=== PATIENT | male | born 1955 | race Caucasian/White ===

== ENCOUNTER 2018-11-26 10:33 | Observation (INO) | payer OTHER ==
[2018-11-26 12:18] LABS: BASO % 1.3 % (0-2.0); EOS % 2.2 % (0-4.5); HEMATOCRIT 38.1 % (35.4-49); HEMOGLOBIN 13.2 GM/dL (11.7-16.9); LYMPH % 22.9 % (8-40); MCH 31.3 pg (25.7-33.7); MCHC 34.7 g/dl (32.0-35.9); MEAN CELL VOLUME 90.1 fl (80-96); MEAN PLT VOLUME 9.9 fl (7.5-11.1); MONO % 11.6 % (3.8-10.2); PLATELET COUNT 235 K/MM3 (134-434); RBC 4.23 M/mm3 (4.00-5.60); RDW 13.6 % (11.9-15.9); WHITE BLOOD COUNT 8.2 K/mm3 (4.0-10.0)
--- NOTE | 2018-11-26 12:18 | PDOC ---
History of Present Illness - General Chief Complaint: Pain Stated Complaint: SENT BY PCP Time Seen by Provider: 11/26/18 11:29 History Source: Patient Exam Limitations: No Limitations - History of Present Illness Initial Comments: 11/26/18 12:12 Pt is a 62yo M with PMH of CAD s/p stents x2, Afib (on Eliquis), COPD, DM presenting to ED with worsening R calf swelling and pain. Pt states he noticed the swelling 2 weeks ago but has been getting progressively worse over the last week. He states that 1-2 days ago he noticed bruising on the back of the calf. He had doppler studies done last week but no clots were found. He endorses SOB and lightheadedness which he attributes to COPD and says he does not feel more sob than usual. Denies chest pain, cough, fevers, chills, syncope, palpitations , abdominal pain, n/v/d urinary symptoms, trauma. He was given a water pill but it has not helped with the swelling *note from PMD office states pt is on ASA and Plavix as well PMD: Ross PMH: see hpi PSH: see hpi Meds: see med rec Allergies: amoxicillin (swelling) Social: smokes cigars daily Past History - Past Medical History Allergies/Adverse Reactions: Allergies Allergy/AdvReac Type Severity Reaction Status Date / Time amoxicillin Allergy Verified 11/26/18 10:48 Home Medications: Ambulatory Orders Amlodipine Besylate [Norvasc -] 10 mg PO DAILY 11/26/18 Apixaban [Eliquis] 5 mg PO BID 11/26/18 Atorvastatin Ca [Lipitor] 10 mg PO HS 11/26/18 Budesonide/Formeterol Fumarate [SYMBICORT 80/4.5mcg -] 1 inh PO BID 11/26/18 Clopidogrel Bisulfate [Plavix] 75 mg PO DAILY 11/26/18 Fesoterodine Fumarate [Toviaz] 8 mg PO DAILY 11/26/18 Furosemide [Lasix] 60 mg PO DAILY 11/26/18 Glipizide/Metformin HCl [Glipizide-Metformin 5-500 mg] 1 each PO BID 11/26/18 Labetalol HCl 300 mg PO DAILY 11/26/18 Lisinopril [Zestril] 40 mg PO DAILY 11/26/18 Oxycodone HCl/Acetaminophen [Percocet 5-325 mg Tablet] 1 tab PO Q4H PRN Tamsulosin HCl [Flomax] 0.4 mg PO DAILY 11/26/18 Cardiac Disorders: Yes (STENTS) COPD: Yes Diabetes: Yes HTN: Yes Kidney Stones: Yes - Surgical History Cardiac Surgery: (STENTS) - Suicide/Smoking/Psychosocial Hx Smoking History: Current some day smoker Cigars Per Day: 1 Information on smoking cessation initiated: No *Physical Exam - Vital Signs Last Vital Signs Temp Pulse Resp BP Pulse Ox 98.1 F 66 20 91/53 L 94 L 11/26/18 10:44 11/26/18 10:44 11/26/18 10:44 11/26/18 10:44 11/26/18 10:44 - Physical Exam General Appearance: Yes: Appropriately Dressed, Obese. No: Apparent Distress HEENT: positive: EOMI, NEL, Normal ENT Inspection Neck: positive: Trachea midline, Supple. negative: Lymphadenopathy (R), Lymphadenopathy (L) Respiratory/Chest: positive: Lungs Clear, Normal Breath Sounds Cardiovascular: positive: Regular Rhythm, Regular Rate, S1, S2. negative: Edema , JVD, Murmur Vascular Pulses: Carotid (R): 2+, Carotid (L): 2+, Dorsalis-Pedis (R): 2+, Doralis-Pedis (L): 2+ Gastrointestinal/Abdominal: positive: Normal Bowel Sounds, Soft, Protuberent. negative: Tender Extremity: positive: Pedal Edema, Swelling (R leg), Calf Tenderness (R calf) ED Treatment Course - LABORATORY CBC & Chemistry Diagram: 11/27/18 10:33 11/27/18 07:00 - RADIOLOGY Radiology Studies Ordered: Category Date Time Status DUPLEX VASCUL US-1 LEG [US] Stat Ultrasound 11/26/18 12:10 Ordered Medical Decision Making - Medical Decision Making Pt is a 62yo M with PMH of CAD s/p stents x2, Afib (on Eliquis), COPD, DM presenting to ED with worsening R calf swelling and pain. Pt states he noticed the swelling 2 weeks ago but has been getting progressively worse over the last week. He states that 1-2 days ago he noticed bruising on the back of the calf. He had doppler studies done last week but no clots were found. He endorses SOB and lightheadedness which he attributes to COPD and says he does not feel more sob than usual. Denies chest pain, cough, fevers, chills, syncope, palpitations , abdominal pain, n/v/d urinary symptoms, trauma. He was given a water pill but it has not helped with the swelling *note from PMD office states pt is on ASA and Plavix as well Vitals: BP 90s/50s, 94-95%RA (COPD), HR 60s PE: RLE edema and swelling, bruising on back of calf, tender ddx includes but not limited to DVT, cellulitis, hematoma, ruptured aden's cyst , phlebitis -cbc, cmp, coags, trop -ekg, u/s, cxr -fluids 11/26/18 12:37 recheck BP 104/70s 11/26/18 13:57 Doppler study shows Bakers Cyst and no DVT. Will order CT CT [id number] area of hemorrhage within medial gastrocnemius muscle from level of proximal R tibial metaphysis to level of middle third of tibial diaphhysis. superior border abuts small subtle 2x1 cm popliteal cyst. concentric subcutaneious edema along length of lower extremity. small R suprapatellra joint effusion. 11/26/18 18:[address] Gallagher who said that pt can stop taking Plavix, does not need to continue since it has been over 1 year he had the stent placed Pt will be admitted obs to make sure bleeding does not get worse, watching for compartment syndrome 11/26/18 19:11 *DC/Admit/Observation/Transfer Diagnosis at time of Disposition: Hemorrhage, Right leg swelling - Discharge Dispostion Decision to Admit order: Yes - Referrals - Patient Instructions - Post Discharge Activity
[2018-11-26] MEDS ORDERED: SODIUM CHLORIDE 1,000 ML IV STA (12:21)
[2018-11-26 12:39] LABS: INR 1.42 (0.83-1.09); PROTHROMBIN TIME (PATIENT) 16.8 SEC (9.7-13.0)
[2018-11-26 12:41] LABS: ACTIVATED PTT 43.1 SECONDS (25.2-36.5)
[2018-11-26 12:50] LABS: ALBUMIN 3.6 g/dl (3.4-5.0); ALK PHOS 66 U/L (45-117); ANION GAP 6 MMOL/L (8-16); BILIRUBIN,TOTAL 0.6 mg/dL (0.2-1); BLOOD UREA NITROGEN 23 mg/dL (7-18); CALCIUM 8.4 mg/dL (8.5-10.1); CHLORIDE 105 mmol/L (98-107); CO2 26 mmol/L (21-32); CREATININE 1.5 mg/dL (0.55-1.3); GLUCOSE,RANDOM 168 mg/dL (74-106); POTASSIUM 4.8 mmol/L (3.5-5.1); SGOT/AST 36 U/L (15-37); SGPT/ALT 38 U/L (13-61); SODIUM 137 mmol/L (136-145); TOT PROT 7.3 g/dl (6.4-8.2)
--- NOTE | 2018-11-26 13:22 | PDOC ---
Attending Attestation - Resident Resident Name: Yola Solis - ED Attending Attestation I have performed the following: I have examined & evaluated the patient, The case was reviewed & discussed with the resident, I agree w/resident's findings & plan - HPI HPI: 11/26/18 13:17 62-year-old male with history of CAD status post stents on Plavix, A. fib on eliquis p/w worsening R lower leg/calf pain for 3-4 works, worse over the past week. Seen by Dr. Caal and doppler performed 3-4 days ago negative for DVT. Pt presents today 2/2 increased bruising/swelling/pain, referred to ED by Dr. Caal. reports compliance with his a/c, denies strain/injury. - Physicial Exam PE: 11/26/18 13:20 Vital signs as noted, blood pressure 130/70, O2 sat 94% with history of COPD Well-appearing, obese, lying comfortably in stretcher in no acute distress Speaking full sentences, no JVD Heart is regular to auscultation, no murmur Right lower extremity: There is 3+ pitting edema in the right lower leg with tender ecchymosis along the calf, discomfort to palpation in the popliteal region. 2+ DP and TP pulses, well perfused distally and neurovascularly intact. 5 out of 5 flexion and extension of knee/ankle/toes on the right Left lower extremity has 2+ pitting edema. - Medical Decision Making 11/26/18 13:22 62-year-old male on anticoagulation for history of CAD and A. fib presents with several weeks of worsening right calf swelling and pain, negative DVT study 3 days ago. Presentation seems most consistent with gastrocnemius hematoma v ruptured aden's cyst, likely exacerbated by his anticoagulation. Very low risk for DVT particularly given his anticoagulation and negative study. Neurovascularly intact without evidence of compartment syndrome. Check labs Repeat Doppler Reassess Heart Score/ECG Review #1 ECG reviewed & interpreted by me at: 11:46 General ECG Interpretation: Sinus Rhythm, Normal Rate (57), Normal Intervals ( qtc 428), No acute ischemic changes (TWI AVF) Compared to previous ECG there are: Previous ECG unavail
[2018-11-26 19:00] LABS: URINE APPEARANCE CLEAR; URINE BILIRUBIN NEGATIVE (NEGATIVE); URINE COLOR YELLOW; URINE GLUCOSE (UA) NEGATIVE (NEGATIVE); URINE KETONE NEGATIVE (NEGATIVE); URINE LEUK ESTERASE NEGATIVE (NEGATIVE); URINE NITRITE NEGATIVE (NEGATIVE); URINE PROTEIN NEGATIVE (NEGATIVE); URINE UROBILINOGEN 0.2 mg/dL (0.2-1.0)
[2018-11-26] MEDS ORDERED: SENNOSIDES 8.6MG TABLET (FP) PO PRN (20:01)
[2018-11-26] MEDS ORDERED: DOCUSATE SODIUM 100 MG CAPSULE (FP) PO PRN (20:01)
[2018-11-26] MEDS ORDERED: NITROGLYCERIN SUBLINGUAL 1/150 0.4 MG TAB SL PRN (20:08)
[2018-11-26] MEDS ORDERED: metFORMIN HCL 500 MG TABLET (FP) ONE (21:48)
[2018-11-26] MEDS ORDERED: glipiZIDE 5 MG TABLET (FP) ONE (21:49)
[2018-11-26] MEDS ORDERED: LABETALOL HCL 100 MG TABLET (FP) ONE (21:49)
[2018-11-26] MEDS ORDERED: ATORVASTATIN CA 10 MG TABLET (FP) ONE (21:49)
[2018-11-26] MEDS: glipiZIDE 5 MG TABLET (FP) PO SCH (21:55)
[2018-11-26] MEDS: metFORMIN HCL 500 MG TABLET (FP) PO SCH (21:55)
[2018-11-26] MEDS: ATORVASTATIN CA 10 MG TABLET (FP) PO SCH (21:55)
[2018-11-26] MEDS: LABETALOL HCL 100 MG TABLET (FP) PO SCH (21:55)
[2018-11-26] MEDS: BUDESONIDE/FORMETEROL FUMARATE 80/4.5 mcg INHALER IH SCH (22:00)
--- NOTE | 2018-11-26 22:11 | HP ---
Admitting History and Physical - Admission Chief Complaint: right calf pain and swelling History of Present Illness: 62 year old Male with h/o Atrial fibrilllation (on eliquis), CAD s/p PCI mRCA and LAD (2018) at [facility], COPD, DMII, and Kidney stones s/p lithotripsy; presents to ED for evaluation of progressively worsening right calf pain over the course of 5 weeks. Mr. Arenas reports being compliant with all his meds, including plavix for CAD and Eliquis for Afib , (he does not take aspirin), but has not seen a senior medical writer in more than a year since his "old senior medical writer left town." Symptoms started out as muscle tension in the right calf five weeks ago which gradually progressed to right calf swelling and pain, which has worsened over the past week. Pt was evaluated by PCP 5days prior to presenting to ED, and treated with percocet and motrin along with rest and elevation. He has remained out of work for the last week due to severity of symptoms and followed up with PCP on 11/26, where he reported no improvement in clinical status, additionally, he was now unable to weight bear and had difficulty climbing the stairs in his house. Patient was referred to ED for evaluation. Mr. Arenas denies recent travel, falls or inciting traumatic events. In ED, vitals BP 91/53, RR 20, HR 65, T 98.1. H/H 13.2/38.1, PTT 43.1, INR 1.42, PT 16.8, creatinine 1.5. Pt given NS 1L RLE doppler negative for DVT. RLE CT scan + acute hemorrhage seen within the medial gastrocnemius muscle. Pt admitted for observation overnight, Cards and vascular to evaluate pt. History Source: Patient Limitations to Obtaining History: No Limitations - Past Medical History Cardiovascular: Yes: AFIB, CAD, CHF, HTN, Hyperlipdemia Pulmonary: Yes: COPD Renal/: Yes: BPH - Past Surgical History Past Surgical History: Yes: None - Smoking History Smoking history: Current some day smoker Have you smoked in the past 12 months: Yes If you are a former smoker, when did you quit?: currently smokes 1 cigar daily - Alcohol/Substance Use Hx Alcohol Use: No History of Substance Use: reports: None - Social History Usual Living Arrangement: Yes: With Significant Other (lives with two friends) ADL: Independent 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 History of Recent Travel: No Other Social History: HCP: Logan Kay [phone] Home Medications - Allergies Allergies/Adverse Reactions: Allergies Allergy/AdvReac Type Severity Reaction Status Date / Time amoxicillin Allergy Verified 11/26/18 10:48 - Home Medications Home Medications: Ambulatory Orders Amlodipine Besylate [Norvasc -] 10 mg PO DAILY 11/26/18 Apixaban [Eliquis] 5 mg PO BID 11/26/18 Atorvastatin Ca [Lipitor] 10 mg PO HS 11/26/18 Budesonide/Formeterol Fumarate [SYMBICORT 80/4.5mcg -] 1 inh PO BID 11/26/18 Clopidogrel Bisulfate [Plavix] 75 mg PO DAILY 11/26/18 Fesoterodine Fumarate [Toviaz] 8 mg PO DAILY 11/26/18 Furosemide [Lasix] 60 mg PO DAILY 11/26/18 Glipizide/Metformin HCl [Glipizide-Metformin 5-500 mg] 1 each PO BID 11/26/18 Labetalol HCl 300 mg PO DAILY 11/26/18 Lisinopril [Zestril] 40 mg PO DAILY 11/26/18 Oxycodone HCl/Acetaminophen [Percocet 5-325 mg Tablet] 1 tab PO Q4H PRN Tamsulosin HCl [Flomax] 0.4 mg PO DAILY 11/26/18 Family Disease History - Family Disease History Family Disease History: Other: Father ( (80) emphysema), Mother ( (56) HTN, after complication from gallbladder surgery), Brother ( alive (79) OR CAD), Sister ( (80) unknown cancer) Other Family History: Brother (58) OR. Brother alive (63) well. Sister alive (65) breast cancer. Sister alive (66) well. Sister alive (58) CVA Review of Systems - Review of Systems Constitutional: reports: No Symptoms Eyes: reports: No Symptoms HENT: reports: No Symptoms Neck: reports: No Symptoms Cardiovascular: reports: Shortness of Breath (due to COPD) Respiratory: reports: Cough (chronic cough r/t SOB) Gastrointestinal: reports: No Symptoms Genitourinary: reports: No Symptoms Breasts: reports: No Symptoms Reported Musculoskeletal: reports: Extremity Pain (right calf pain) Integumentary: reports: Erythema (right calf redness) Neurological: reports: Tremors, Unsteady Gait, Weakness (RLE,) Endocrine: reports: No Symptoms Hematology/Lymphatic: reports: Easily Bruised Psychiatric: reports: No Symptoms Physical Examination Vital Signs: Vital Signs Temperature 98.6 F 11/26/18 22:00 Pulse Rate 76 11/26/18 22:00 Respiratory Rate 16 11/26/18 22:00 Blood Pressure 144/85 11/26/18 22:00 O2 Sat by Pulse Oximetry (%) 95 11/26/18 22:00 Constitutional: Yes: Well Nourished, No Distress, Calm, Other (dishelved) Eyes: Yes: Conjunctiva Clear, PERRL HENT: Yes: Atraumatic, Normocephalic Neck: Yes: Supple, Trachea Midline Cardiovascular: Yes: Regular Rate and Rhythm, S1, S2 Respiratory: Yes: Regular, CTA Bilaterally Gastrointestinal: Yes: Normal Bowel Sounds ...Rectal Exam: Yes: Deferred Musculoskeletal: Yes: WNL Extremities: Yes: WNL Edema: Yes Edema: RLE: 1+ (right calf) Peripheral Pulses WNL: Yes Peripheral Pulses: Left Radial: 2+, Right Radial: 2+, Left Doralis Pedis: 2+, Right Dorsalis Pedis: 2+ Integumentary: Yes: Erythema (right calf) Neurological: Yes: Alert, Oriented ...Motor Strength: WNL (slight decrease RLE) Psychiatric: Yes: Alert, Oriented Labs: CBC, BMP 11/26/18 12:09 11/26/18 11:29 Imaging - Results X-ray: Report Reviewed (CXR 11/26/2018 Impression: No acute chest pathology Reported By: Lawrence Duran MD 11/26/18 194) Cat Scan: Report Reviewed (CT RLE 11/26/2018 Impression: Acute hemorrhage is seen within the medial gastrocnemius muscle of the right leg as noted above. A subtle 2 x 1 cm medial popliteal cyst is seen. Concentric subcutaneous edema is visualized along the length of the lower extremity. Small suprapatellar joint effusion. Reported By: Mckinley Sparrow MD 11/26/18 223) Ultrasound: Report Reviewed (RLE venous doppler 11/26/2018 Impression: There is no evidence of deep venous thromboses in the right lower extremity. Torres's cyst in the popliteal fossa measuring 2.3 x 1.1 cm. Reported By: Maranda Ramirez MD) Problem List - Problems (1) Hemorrhage of muscle Assessment/Plan: hold plavix and eliquis cardiology consult to assist with management serial measurement of calf girth to assess for expanding hematoma trend H/H (currently normal) assess right peripheral circulation q4hrs PT eval in AM since pt has difficulty weight bearing Code(s): M62.89 - OTHER SPECIFIED DISORDERS OF MUSCLE (2) Atrial fibrillation Assessment/Plan: continuous tele hold AC, until pt evaluated by cards rate control with BB Code(s): I48.91 - UNSPECIFIED ATRIAL FIBRILLATION (3) Coronary arteriosclerosis Assessment/Plan: hold anti-plt medication continue lipitor 10mg qhs cardiac/diabetic diet Code(s): I25.10 - ATHSCL HEART DISEASE OF [place] CORONARY ARTERY W/O ANG PCTRS (4) Diabetes type 2, controlled Assessment/Plan: metformin 500mg BID with meals glipizide 5mg BID with meals diabetic diet consider insulin if BG levels are not well controlled with oral agents Code(s): E11.9 - TYPE 2 DIABETES MELLITUS WITHOUT COMPLICATIONS (5) HTN (hypertension) Assessment/Plan: Lisinopril 40mg daily lasix 40mg daily norvasc 10mg daily Code(s): I10 - ESSENTIAL (PRIMARY) HYPERTENSION (6) Asthma Assessment/Plan: symbicort BID nebs PRN dyspnea Code(s): J45.909 - UNSPECIFIED ASTHMA, UNCOMPLICATED (7) Benign prostatic hyperplasia (BPH) with urinary urge incontinence Assessment/Plan: continue flomax and Toviaz Code(s): N40.1 - BENIGN PROSTATIC HYPERPLASIA WITH LOWER URINARY TRACT SYMP; N39.41 - URGE INCONTINENCE Assessment/Plan DISPO: Full code observe overnight, if deemed stable by vascular, pt can be discharged with outpt follow up no heparin products 2/2 bleed, apply SCD to LLE only OOB to chair start protonix daily for GI PPX Visit type - Emergency Visit Emergency Visit: Yes ED Registration Date: 11/26/18 Care time: The patient presented to the Emergency Department on the above date and was hospitalized for further evaluation of their emergent condition. - New Patient This patient is new to me today: Yes Date on this admission: 11/26/18 - Critical Care Critical Care patient: No
[2018-11-26] MEDS ORDERED: ALBUTEROL SO4 0.083% IH SOL 2.5 MG/3 ML VIAL.NEB. NEB PRN (23:19)
[2018-11-26 23:54] VITALS: BMI 49.7
[2018-11-27] MEDS ORDERED: PNEUMOC 13-VAL CONJ-DIP CRM/PF 0.5 ML DISP.SYRIN IM ONE
[2018-11-27] MEDS: glipiZIDE 5 MG TABLET (FP) PO SCH ×2 (06:25→17:50)
[2018-11-27] MEDS: metFORMIN HCL 500 MG TABLET (FP) PO SCH ×2 (06:25→17:50)
[2018-11-27 07:47] LABS: HEMATOCRIT 35.1 % (35.4-49); HEMOGLOBIN 12.1 GM/dL (11.7-16.9); MCH 30.8 pg (25.7-33.7); MCHC 34.6 g/dl (32.0-35.9); MEAN CELL VOLUME 89.1 fl (80-96); MEAN PLT VOLUME 9.3 fl (7.5-11.1); PLATELET COUNT 199 K/MM3 (134-434); RBC 3.94 M/mm3 (4.00-5.60); RDW 13.5 % (11.9-15.9); WHITE BLOOD COUNT 7.6 K/mm3 (4.0-10.0)
--- NOTE | 2018-11-27 07:58 | CONSULT ---
- Consultation REQUESTING PROVIDER: CONSULT REQUEST: We have been asked to surgically evaluate this patient for Right calf hematoma PCP:Breann Hawkins HISTORY OF PRESENT ILLNESS: 62yo M presented to the ED with complaints of worsening Right calf hematoma x 1 week. Pt states that he noticed some swelling in his leg for several weeks, but that it got really bad over the past week with pain. Pt on Eliquiis for afib, states last took on Monday. Pt denies any trauma to the leg. Pt denies vascular problems or surgery on the leg. Pt denies weakness or numbness in the leg. Pt smokes cigars daily 1-2/day PMHx: Diabetes, CAD, BPH, COPD Home Medications Medication Instructions Recorded Amlodipine Besylate [Norvasc -] 10 mg PO DAILY 11/26/18 Apixaban [Eliquis] 5 mg PO BID 11/26/18 Atorvastatin Ca [Lipitor] 10 mg PO HS 11/26/18 Budesonide/Formeterol Fumarate 1 inh PO BID 11/26/18 [SYMBICORT 80/4.5mcg -] Clopidogrel Bisulfate [Plavix] 75 mg PO DAILY 11/26/18 Fesoterodine Fumarate [Toviaz] 8 mg PO DAILY 11/26/18 Furosemide [Lasix] 60 mg PO DAILY 11/26/18 Glipizide/Metformin HCl 1 each PO BID 11/26/18 [Glipizide-Metformin 5-500 mg] Labetalol HCl 300 mg PO DAILY 11/26/18 Lisinopril [Zestril] 40 mg PO DAILY 11/26/18 Oxycodone HCl/Acetaminophen 1 tab PO Q4H PRN 11/26/18 [Percocet 5-325 mg Tablet] Tamsulosin HCl [Flomax] 0.4 mg PO DAILY 11/26/18 Allergies Allergy/AdvReac Type Severity Reaction Status Date / Time amoxicillin Allergy Verified 11/26/18 10:48 REVIEW OF SYSTEMS: CONSTITUTIONAL: Absent: fever, chills, diaphoresis, generalized weakness, malaise CARDIOVASCULAR: Absent: chest pain, syncope, palpitations,lightheadedness, peripheral edema RESPIRATORY: Absent: cough, shortness of breath, dyspnea with exertion, wheezing GASTROINTESTINAL: Absent: abdominal pain, abdominal distension, nausea, vomiting, diarrhea, constipation, melena, hematochezia SKIN: Absent: rash, itching, pallor HEMATOLOGIC/IMMUNOLOGIC: Absent: easy bleeding, easy bruising NEUROLOGIC: Absent: headache, focal weakness, paresthesias, dizziness, unsteady gait, seizure, mental status changes, PHYSICAL EXAM: GENERAL: Awake, alert, and fully oriented, in no acute distress. HEAD: Normal with no signs of trauma. EYES: PERRL, sclera anicteric, conjunctiva clear. NECK: Normal ROM LUNGS: Clear to auscultation bilat anteriorly. No wheezes, and no crackles. No accessory muscle use. HEART: Regular rate and rhythm. No murmurs MUSCULOSKELETAL: Normal ROM at all joints. No bony deformities or tenderness. No CVA tenderness. LOWER EXTREMITIES: 2+ pulses, warm, well-perfused. RLE shows calf swelling with mild tenderness to palpation, no numbness or weakness, foot is warm with +1 edema. Full ROM NEUROLOGICAL: Normal speech, gait not observed. PSYCH: Cooperative. Good eye contact. Appropriate mood and affect. SKIN: Warm, dry, normal turgor, no rashes or lesions noted. Vital Signs Temperature 98.7 F 11/27/18 06:00 Pulse Rate 82 11/27/18 06:00 Respiratory Rate 20 11/27/18 06:00 Blood Pressure 142/70 11/27/18 06:00 O2 Sat by Pulse Oximetry (%) 95 11/27/18 00:01 Lab Results WBC 8.2 K/mm3 (4.0-10.0) 11/26/18 12:09 RBC 4.23 M/mm3 (4.00-5.60) 11/26/18 12:09 Hgb 13.2 GM/dL (11.7-16.9) 11/26/18 12:09 Hct 38.1 % (35.4-49) 11/26/18 12:09 MCV 90.1 fl (80-96) 11/26/18 12:09 MCHC 34.7 g/dl (32.0-35.9) 11/26/18 12:09 RDW 13.6 % (11.9-15.9) 11/26/18 12:09 Plt Count 235 K/MM3 (134-434) 11/26/18 12:09 Sodium 137 mmol/L (136-145) 11/26/18 11:29 Potassium 4.8 mmol/L (3.5-5.1) 11/26/18 11:29 Chloride 105 mmol/L (98-107) 11/26/18 11:29 Carbon Dioxide 26 mmol/L (21-32) 11/26/18 11:29 Anion Gap 6 MMOL/L (8-16) L 11/26/18 11:29 BUN 23 mg/dL (7-18) H 11/26/18 11:29 Creatinine 1.5 mg/dL (0.55-1.3) H 11/26/18 11:29 Random Glucose 168 mg/dL (74-106) H 11/26/18 11:29 Calcium 8.4 mg/dL (8.5-10.1) L 11/26/18 11:29 INR 1.42 (0.83-1.09) H 11/26/18 12:09 Problem List - Problems (1) Hemorrhage of muscle Assessment/Plan: Plan -at this point no sign of compartment syndrome, recommend serial vascular checks Q2hrs, educated pt on what to look out for -elevate leg, warm compresses -will follow up on when to restart anticoagulation (appreciate cardiology recs) -will follow. Code(s): M62.89 - OTHER SPECIFIED DISORDERS OF MUSCLE
[2018-11-27 08:00] LABS: INR 1.28 (0.83-1.09); PROTHROMBIN TIME (PATIENT) 15.2 SEC (9.7-13.0)
[2018-11-27 08:03] LABS: ACTIVATED PTT 40.5 SECONDS (25.2-36.5)
[2018-11-27 08:17] LABS: ALBUMIN 3.2 g/dl (3.4-5.0); ALK PHOS 60 U/L (45-117); ANION GAP 8 MMOL/L (8-16); BILIRUBIN,TOTAL 0.6 mg/dL (0.2-1); BLOOD UREA NITROGEN 19 mg/dL (7-18); CALCIUM 7.6 mg/dL (8.5-10.1); CHLORIDE 106 mmol/L (98-107); CO2 27 mmol/L (21-32); CREATININE 1.1 mg/dL (0.55-1.3); GLUCOSE,RANDOM 113 mg/dL (74-106); SGOT/AST 25 U/L (15-37); SGPT/ALT 31 U/L (13-61); SODIUM 141 mmol/L (136-145); TOT PROT 6.5 g/dl (6.4-8.2)
--- NOTE | 2018-11-27 09:04 | PN ---
Progress Note (short form) - Note Progress Note: came in for progressively worsening right calf pain and swelling started ~6 weeks ago, quite severe for past week, where he is unable to walk no trauma, no falls, no recent change in medications CBC, BMP 11/27/18 07:00 11/27/18 07:00 Vital Signs Period Temp Pulse Resp BP Sys/Reed Pulse Ox Last 24 Hr 98.1 F-99.3 F 63-82 16-20 91-155/53-85 92-95 S1S2 RRR lungs cta abd soft NT +BS right thigh > left right calf > left, tense with dependent calf hematoma positive strong dorsalis pedis pulse aaox3 imp acute right calf hemorrhage -on plavix and eliquis, also recently on 800 mg motrin for calf pain CAD-s/p PCI 2017 afib -currently in sinus rhythm HTN NIDDM COPD renal stones plan vascular/card. consult requested stop plavix and eliquis for now monitor cbc PT eval tomorrow pain control keep leg elevated i think he can permanently stop plavix since pci is a year old resume eliquis when ok with vascular 24 h holter for afib eval
[2018-11-27] MEDS: FUROSEMIDE 40 MG TABLET (FP) PO SCH (09:14)
[2018-11-27] MEDS: TAMSULOSIN HCL 0.4 MG CAP PO SCH (09:15)
[2018-11-27] MEDS: amLODIPine BESYLATE 10 MG TABLET (FP) PO SCH (09:15)
[2018-11-27] MEDS: LABETALOL HCL 100 MG TABLET (FP) PO SCH (09:15)
[2018-11-27] MEDS: LISINOPRIL 20 MG TABLET (FP) PO SCH (09:15)
[2018-11-27] MEDS: PANTOPRAZOLE 20 MG TABLET (FP) PO SCH (09:15)
[2018-11-27] MEDS ORDERED: ACETAMINOPHEN 325 MG TABLET (FP) PO PRN (09:20)
--- NOTE | 2018-11-27 09:25 | EKG ---
Test Reason : Blood Pressure : / mmHG Vent. Rate : 057 BPM Atrial Rate : 057 BPM P-R Int : 170 ms QRS Dur : 096 ms QT Int : 440 ms P-R-T Axes : 012 -40 -30 degrees QTc Int : 428 ms SINUS BRADYCARDIA LEFT AXIS DEVIATION ABNORMAL ECG NO PREVIOUS ECGS AVAILABLE Confirmed by RD HAWLEY MD ([id number]) on 11/27/2018 9:24:39 AM Referred By: Confirmed By:RD HAWLEY MD
[2018-11-27] MEDS ORDERED: PT OWN MED DRAWER 7, Y5N ONE (09:34)
[2018-11-27] MEDS: BUDESONIDE/FORMETEROL FUMARATE 80/4.5 mcg INHALER IH SCH ×2 (09:39→22:24)
[2018-11-27] MEDS: oxyCODONE HCL 5 MG TABLET PO PRN (09:40)
[2018-11-27] MEDS ORDERED: PNEUMOCOCCAL 23 VACCINE 0.5 ML VIAL IM ONE (10:00)
[2018-11-27] MEDS ORDERED: FLU VACCINE QUAD 60 MCG/0.5 ML (MDV 18-19) IM ONE (10:00)
[2018-11-27 11:11] LABS: BASO % 0.8 % (0-2.0); EOS % 2.3 % (0-4.5); HEMATOCRIT 35.6 % (35.4-49); HEMOGLOBIN 12.4 GM/dL (11.7-16.9); LYMPH % 23.9 % (8-40); MCH 31.2 pg (25.7-33.7); MCHC 34.8 g/dl (32.0-35.9); MEAN CELL VOLUME 89.8 fl (80-96); MEAN PLT VOLUME 9.8 fl (7.5-11.1); MONO % 12.2 % (3.8-10.2); NEUT % 60.8 % (42.8-82.8); PLATELET COUNT 208 K/MM3 (134-434); RBC 3.96 M/mm3 (4.00-5.60); RDW 13.2 % (11.9-15.9); WHITE BLOOD COUNT 7.4 K/mm3 (4.0-10.0)
[2018-11-27] MEDS: ATORVASTATIN CA 10 MG TABLET (FP) PO SCH (22:23)
[2018-11-28] MEDS: glipiZIDE 5 MG TABLET (FP) PO SCH ×2 (06:27→16:52)
[2018-11-28] MEDS: metFORMIN HCL 500 MG TABLET (FP) PO SCH ×2 (06:27→16:54)
--- NOTE | 2018-11-28 08:15 | PN ---
Progress Note (short form) - Note Progress Note: 62yo M h/o Rt calf hematoma, pt states that the leg is feeling a little better, but continues to have pain with walking. Pt denies fever, chills, n/v. Last Vital Signs Temp Pulse Resp BP Pulse Ox 98.4 F 56 L 20 155/72 95 11/28/18 06:00 11/28/18 06:00 11/28/18 06:00 11/28/18 06:00 11/27/18 21:00 CBC, BMP 11/27/18 10:33 11/27/18 07:00 PE: Gen: A&O x3 Resp: breathing comfortably Ext: RLE whose +2 edema, pedal pulse +2, echymosis on posterior calf, full ROM, no weakness or numbness Problem List - Problems (1) Hemorrhage of muscle Assessment/Plan: Plan - Rt calf looks stable, can restart anticoagulation from Vascular standpoint -continue leg elevation, and hot packs - no surgical intervention needed at this time - can follow up with Dr. Fraser as outpatient Case discussed with Dr. Fraser who agrees with plan Code(s): M62.89 - OTHER SPECIFIED DISORDERS OF MUSCLE
[2018-11-28 08:28] LABS: BASO % 0.9 % (0-2.0); EOS % 2.8 % (0-4.5); HEMATOCRIT 36.1 % (35.4-49); HEMOGLOBIN 12.8 GM/dL (11.7-16.9); LYMPH % 26.8 % (8-40); MCH 31.7 pg (25.7-33.7); MCHC 35.4 g/dl (32.0-35.9); MEAN CELL VOLUME 89.7 fl (80-96); MEAN PLT VOLUME 9.5 fl (7.5-11.1); MONO % 12.7 % (3.8-10.2); NEUT % 56.8 % (42.8-82.8); PLATELET COUNT 195 K/MM3 (134-434); RBC 4.03 M/mm3 (4.00-5.60); RDW 13.4 % (11.9-15.9)
[2018-11-28] MEDS: oxyCODONE HCL 5 MG TABLET PO PRN (09:28)
[2018-11-28] MEDS: FUROSEMIDE 40 MG TABLET (FP) PO SCH (09:31)
[2018-11-28] MEDS: amLODIPine BESYLATE 10 MG TABLET (FP) PO SCH (09:32)
[2018-11-28] MEDS: TAMSULOSIN HCL 0.4 MG CAP PO SCH (09:32)
[2018-11-28] MEDS: PANTOPRAZOLE 20 MG TABLET (FP) PO SCH (09:32)
[2018-11-28] MEDS: LABETALOL HCL 100 MG TABLET (FP) PO SCH (09:33)
[2018-11-28] MEDS: LISINOPRIL 20 MG TABLET (FP) PO SCH (09:33)
[2018-11-28] MEDS: BUDESONIDE/FORMETEROL FUMARATE 80/4.5 mcg INHALER IH SCH (09:35)
--- NOTE | 2018-11-28 12:10 | DS ---
Physical Examination Vital Signs: Vital Signs Temperature 98.7 F 11/28/18 09:13 Pulse Rate 64 11/28/18 09:13 Respiratory Rate 20 11/28/18 09:13 Blood Pressure 147/79 11/28/18 09:13 O2 Sat by Pulse Oximetry (%) 95 11/27/18 21:00 Constitutional: Yes: No Distress, Obese Eyes: Yes: Conjunctiva Clear HENT: Yes: Normocephalic Neck: Yes: Trachea Midline Cardiovascular: Yes: Regular Rate and Rhythm Respiratory: Yes: CTA Bilaterally Gastrointestinal: Yes: Normal Bowel Sounds, Soft, Abdomen, Obese Extremities: Yes: Other (calf swelling and tenderness resolving, hematoma resolving, less pain) Edema: Yes Psychiatric: Yes: WNL Labs: CBC, BMP 11/28/18 07:35 11/27/18 07:00 Discharge Summary Reason For Visit: SWELLING OF RIGHT LOWER EXTREMITY/ACUTE HEMMORRAGE Current Active Problems Asthma (Acute) Atrial fibrillation (Acute) Benign prostatic hyperplasia (BPH) with urinary urge incontinence (Acute) Coronary arteriosclerosis (Acute) Diabetes type 2, controlled (Acute) HLD (hyperlipidemia) (Acute) HTN (hypertension) (Acute) Hemorrhage (Acute) Hemorrhage of muscle (Acute) Right leg swelling (Acute) Hospital Course: acute right calf hemorrhage -on plavix and eliquis, also recently on 800 mg motrin for calf pain, CAD-s/p PCI 2018, afib -currently in sinus rhythm, HTN, NIDDM, COPD, renal stones clinically better, h/h stable, would resume eliquis tomorrow evening, to continue holding plavix can f/up for holter results as outpt physical therapy will provide cane upon discharge - Instructions - Home Medications Comprehensive Discharge Medication List: Ambulatory Orders Amlodipine Besylate [Norvasc -] 10 mg PO DAILY 11/26/18 Apixaban [Eliquis] 5 mg PO BID 11/26/18 Atorvastatin Ca [Lipitor] 10 mg PO HS 11/26/18 Budesonide/Formeterol Fumarate [SYMBICORT 80/4.5mcg -] 1 inh PO BID 11/26/18 Clopidogrel Bisulfate [Plavix] 75 mg PO DAILY 11/26/18 Fesoterodine Fumarate [Toviaz] 8 mg PO DAILY 11/26/18 Furosemide [Lasix] 60 mg PO DAILY 11/26/18 Glipizide/Metformin HCl [Glipizide-Metformin 5-500 mg] 1 each PO BID 11/26/18 Labetalol HCl 300 mg PO DAILY 11/26/18 Lisinopril [Zestril] 40 mg PO DAILY 11/26/18 Oxycodone HCl/Acetaminophen [Percocet 5-325 mg Tablet] 1 tab PO Q4H PRN Tamsulosin HCl [Flomax] 0.4 mg PO DAILY 11/26/18
--- NOTE | 2018-11-28 14:01 | HOL ---
Hook-up date: 2018-11-27 10:37:00 Duration: 23:03:00 Test Indications: EVALUATE AFIB Medications: 13594 QRS complexes 1010 Ventricular ectopics which represent 1 % of total QRS comp. 92 Supraventricular ectopics which represent <1 % of total QRS comp. * Paced QRS complexs which represent % of total QRS comp. * % of Time Classified as Noise VENTRICULAR ECTOPY 1010 Isolated 6 Bigeminal Cycles 0 Couplets 0 Runs 0 Beats in Runs * Beats LONGEST at * BPM at :: -- * Beats FASTEST at * BPM at :: -- SUPRAVENTRICULAR ECTOPY 88 Isolated 0 Couplets 1 Runs 4 Beats in Runs 4 Beats LONGEST at 122 BPM at 22:35:20 2018-11-27 4 Beats FASTEST at 122 BPM at 22:35:20 2018-11-27 HEART RATES 38 MIN at 04:59:06 2018-11-28 66 AVG 114 MAX at 09:16:45 2018-11-28 LONGEST RR 2.632 secs at 04:59:06 2018-11-28 Normal sinus rhythm 1010 isolated VPCs 88 isolated apcs 1 Atrial run 4 beats long at 122 bpm minnimum HR 38 Possible episodes of Wenkebach heart block - incomplete tracings provided for analisis Confirmed by MT GIRON, FREDY ([id number]) on 11/28/2018 2:00:17 PM Referred By: Ignacio CISSE Overread By: FREDY AMOR MD
--- NOTE | 2018-11-28 15:04 | EKG ---
Test Reason : Blood Pressure : / mmHG Vent. Rate : 057 BPM Atrial Rate : 057 BPM P-R Int : 172 ms QRS Dur : 100 ms QT Int : 400 ms P-R-T Axes : 023 -37 -31 degrees QTc Int : 389 ms SINUS BRADYCARDIA LEFT AXIS DEVIATION NONSPECIFIC T WAVE ABNORMALITY ABNORMAL ECG WHEN COMPARED WITH ECG OF 26-NOV-2018 11:46, NONSPECIFIC T WAVE ABNORMALITY NOW EVIDENT IN LATERAL LEADS Confirmed by MT GIRON, FREDY ([id number]) on 11/28/2018 3:03:41 PM Referred By: SUZIE LACEY Confirmed By:FREDY AMOR MD
--- NOTE | 2018-11-28 15:46 | CON.CARD ---
Consult Consult Specialty:: Cardiology Referred by:: Rosemary Franz MD Reason for Consultation:: Calf hematoma - History of Present Illness Chief Complaint: Calf pain History of Present Illness: 62 yo h/o HTN, chol, DM, diastolic dysfunction, CAD s/p TAMANNA 10/2017, paroxysmal afib on Plavix and Eliquis came in for progressively worsening right calf pain and swelling starting ~6 weeks ago, quite severe for past week, where he is unable to walk, found to have calf hematoma conservatively treated, denies trauma, no falls, chest pain, dyspnea, palpitations, orthopnea, PND. Now able to ambulate with cane assistance. 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 [employer] History of Recent Travel: No Home Medications - Allergies Allergies/Adverse Reactions: Allergies Allergy/AdvReac Type Severity Reaction Status Date / Time amoxicillin Allergy Verified 11/26/18 10:48 - Home Medications Home Medications: Ambulatory Orders Amlodipine Besylate [Norvasc -] 10 mg PO DAILY 11/26/18 Apixaban [Eliquis] 5 mg PO BID 11/26/18 Atorvastatin Ca [Lipitor] 10 mg PO HS 11/26/18 Budesonide/Formeterol Fumarate [SYMBICORT 80/4.5mcg -] 1 inh PO BID 11/26/18 Fesoterodine Fumarate [Toviaz] 8 mg PO DAILY 11/26/18 Furosemide [Lasix] 60 mg PO DAILY 11/26/18 Glipizide/Metformin HCl [Glipizide-Metformin 5-500 mg] 1 each PO BID 11/26/18 Labetalol HCl 300 mg PO DAILY 11/26/18 Lisinopril [Zestril] 40 mg PO DAILY 11/26/18 Oxycodone HCl/Acetaminophen [Percocet 5-325 mg Tablet] 1 tab PO Q4H PRN Tamsulosin HCl [Flomax] 0.4 mg PO DAILY 11/26/18 Nitroglycerin Sublingual [Nitrostat -] 0.4 mg SL Q5M PRN tab 11/28/18 Family Disease History - Family Disease History Family Disease History: Other: Father ( (80) emphysema), Mother ( (56) HTN, after complication from gallbladder surgery), Brother ( alive (79) OR CAD), Sister ( (80) unknown cancer) Other Family History: Brother (58) OR. Brother alive (63) well. Sister alive (65) breast cancer. Sister alive (66) well. Sister alive (58) CVA Review of Systems - Review of Systems Cardiovascular: reports: Edema Vital Signs: Vital Signs Temperature 98.7 F 11/28/18 09:13 Pulse Rate 64 11/28/18 09:13 Respiratory Rate 20 11/28/18 09:13 Blood Pressure 147/79 11/28/18 09:13 O2 Sat by Pulse Oximetry (%) 95 11/28/18 09:00 Constitutional: Yes: No Distress, Calm Neck: Yes: Supple Respiratory: Yes: Regular, CTA Bilaterally Gastrointestinal: Yes: Normal Bowel Sounds, Soft, Abdomen, Obese Cardiovascular: Yes: Regular Rate and Rhythm JVD: No Carotid Bruit: No Heart Sounds: Yes: S1, S2 Edema: Yes Edema: LLE: Trace, RLE: 2+ (right calf hematoma) - Other Data Labs, Other Data: CBC, BMP 11/28/18 07:35 11/27/18 07:00 INR, PTT INR 1.28 (0.83-1.09) H 11/27/18 07:00 SB @ 57 LAD nonspec T wave changes Holter Monitor: PAF, wenckebach Ejection Fraction %: LVEF > or = 40 % Imaging - Results Chest X-ray: Report Reviewed (NAD) Cat Scan: Report Reviewed (Acute right medial gastrocnemius hematoma) Problem List - Problems (1) History of coronary artery stent placement Code(s): Z95.5 - PRESENCE OF CORONARY ANGIOPLASTY IMPLANT AND GRAFT (2) Coronary artery disease Code(s): I25.10 - ATHSCL HEART DISEASE OF [place] CORONARY ARTERY W/O ANG PCTRS Qualifiers: Coronary Disease-Associated Artery/Lesion type: [place] artery [place] vs. transplanted heart: [place] heart Associated angina: without angina Qualified Code(s): I25.10 - Atherosclerotic heart disease of [place] coronary artery without angina pectoris (3) Diastolic dysfunction Code(s): I51.89 - OTHER ILL-DEFINED HEART DISEASES (4) Atrial fibrillation Code(s): I48.91 - UNSPECIFIED ATRIAL FIBRILLATION Qualifiers: Atrial fibrillation type: paroxysmal Qualified Code(s): I48.0 - Paroxysmal atrial fibrillation (5) Coronary arteriosclerosis Code(s): I25.10 - ATHSCL HEART DISEASE OF [place] CORONARY ARTERY W/O ANG PCTRS (6) Diabetes type 2, controlled Code(s): E11.9 - TYPE 2 DIABETES MELLITUS WITHOUT COMPLICATIONS Qualifiers: Diabetes mellitus shelter insulin use: without shelter use (7) HLD (hyperlipidemia) Code(s): E78.5 - HYPERLIPIDEMIA, UNSPECIFIED Qualifiers: Hyperlipidemia type: pure hypercholesterolemia Qualified Code(s): E78.00 - Pure hypercholesterolemia, unspecified; E78.0 - Pure hypercholesterolemia (8) HTN (hypertension) Code(s): I10 - ESSENTIAL (PRIMARY) HYPERTENSION Qualifiers: Hypertension type: essential hypertension Qualified Code(s): I10 - Essential (primary) hypertension (9) Hemorrhage of muscle Code(s): M62.89 - OTHER SPECIFIED DISORDERS OF MUSCLE Assessment/Plan 11/10/2017 Nuc stress: Normal MPI 1. Resolving right leg hematoma 2. CAD s/p TAMANNA 3. HTN 4. Hyperlipidemia 5 Type 2 DM 6. Diastolic dysfunction P:1. Agree with resuming eliquis 5 bid as hemostasis achieved, may d/c Plavix as it is greater than 1 year post PCI 2. Monitor Hgb, continue leg elevation, and hot packs 3. Continue Norvasc 10 qd, Lipitor 10 qhs, lisinopril 40 qd, labetolol 300 qd and Lasix 4. Thank you for consultative opportunity with f/u in cardiology office
[2018-11-28 17:33] VITALS: BP 127/67; PULSE 63; TEMP 98.8
== END 2018-11-28 05:45 | disposition home or self-care (01) ==
LOC: JER 10:33 → JERBED 19:08 → J6S 23:23
PROVIDERS: ADMIT Internal Medicine; ATTEND Internal Medicine
PROC: 3E0337Z Introduction of Electrolytic and Water Balance Substance into Peripheral Vein, Percutaneous Approach (ICD-10-PCS; principal; 2018-11-26)
PROC: 3E0234Z Introduction of Serum, Toxoid and Vaccine into Muscle, Percutaneous Approach (ICD-10-PCS; 2018-11-26)
PROC: 3E02340 Introduction of Influenza Vaccine into Muscle, Percutaneous Approach (ICD-10-PCS; 2018-11-26)
DX: M62.89 Other specified disorders of muscle (principal); I10 Essential (primary) hypertension; I48.91 Unspecified atrial fibrillation; I25.10 Atherosclerotic heart disease of native coronary artery without angina pectoris; E11.9 Type 2 diabetes mellitus without complications; E78.5 Hyperlipidemia, unspecified; N40.1 Benign prostatic hyperplasia with lower urinary tract symptoms; F17.210 Nicotine dependence, cigarettes, uncomplicated; N39.41 Urge incontinence; J44.9 Chronic obstructive pulmonary disease, unspecified; Z79.01 Long term (current) use of anticoagulants; Z87.442 Personal history of urinary calculi; Z95.5 Presence of coronary angioplasty implant and graft; Z88.1 Allergy status to other antibiotic agents; Z79.84 Long term (current) use of oral hypoglycemic drugs; Z23 Encounter for immunization
CPT/HCPCS: 36415; 71046-TC-FY; 73700-TC-RT; 80053; 81003; 82962; 83735; 84484; 85025; 85027; 85610; 85730; 86850; 86900; 86901; 90688; 90732; 93005; 93010; 93225; 93226; 93971-TC; 97116-GP; 97161-GP; 99285-25; G0009; G0378; J7030

== ENCOUNTER 2019-10-21 09:22 | Inpatient (IN) | payer OTHER ==
--- NOTE | 2019-10-21 10:02 | PDOC ---
Attending Attestation - Resident Resident Name: JessgaleAnne Marie - ED Attending Attestation I have performed the following: I have examined & evaluated the patient, The case was reviewed & discussed with the resident, I agree w/resident's findings & plan, Exceptions are as noted - HPI HPI: 63 yo M history CHF, CAD, HTN, HL, DM, BPH presenting with progressively worsening SOB, HUDSON. Symptoms are associated with cough that intermittently produces clear sputum. +Leg swelling B/L. Denies fever. No known sick contacts. - Physicial Exam PE: GENERAL: Awake, alert, and fully oriented. Obese. Appears anxious. HEAD: No signs of trauma EYES: PERRLA, EOMI, sclera anicteric, conjunctiva clear ENT: Auricles normal inspection, hearing grossly normal, nares patent, oropharynx clear without exudates. Moist mucosa NECK: Normal ROM, supple, no lymphadenopathy, JVD, or masses LUNGS: Dec air entry B/L, distant breath sounds. Dec breath sounds long term up bilaterally. HEART: Regular rate and rhythm, normal S1 and S2, no murmurs, rubs or gallops ABDOMEN: Soft, nontender, normoactive bowel sounds. No guarding, no rebound. No masses EXTREMITIES: Normal range of motion, +BLE pitting edema. No clubbing or cyanosis. No cords, erythema, or tenderness NEUROLOGICAL: Cranial nerves II through XII grossly intact. Normal speech. Motor and sensation intact. Gait not tested due to nature of complaint SKIN: Warm, dry, normal turgor, no rashes or lesions noted. - Medical Decision Making Pt with suspected CHF exacerbation, likely combined with COPD. Will check labs, CXR, and plan for admission.
[2019-10-21 10:27] LABS: HEMATOCRIT 39.1 % (35.4-49); HEMOGLOBIN 13.3 GM/dL (11.7-16.9); LYMPH % 18.6 % (8-40); MCH 30.5 pg (25.7-33.7); MCHC 33.9 g/dl (32.0-35.9); MEAN CELL VOLUME 90.1 fl (80-96); MEAN PLT VOLUME 9.6 fl (7.5-11.1); MONO % 11.4 % (3.8-10.2); PLATELET COUNT 222 K/MM3 (134-434); RBC 4.34 M/mm3 (4.00-5.60); RDW 13.8 % (11.9-15.9); VENOUS PC02 41.5 mmHg (38-52); VENOUS PO2 < 49 mmHg (28-48); WHITE BLOOD COUNT 7.6 K/mm3 (4.0-10.0)
--- NOTE | 2019-10-21 10:34 | PDOC ---
History of Present Illness <Faizan Harvey - Last Filed: 10/21/19 11:59> <Anne Marie Love - Last Filed: 11/13/19 21:35> - General Chief Complaint: Chest Pain Stated Complaint: CHEST PAIN/SOB Time Seen by Provider: 10/21/19 09:38 Past History <Faizan Harvey - Last Filed: 10/21/19 11:59> - Past Medical History Cardiac Disorders: Yes (STENTS) COPD: Yes Diabetes: Yes HTN: Yes Kidney Stones: Yes - Surgical History Cardiac Surgery: (STENTS) - Psycho Social/Smoking Cessation Hx Smoking History: Unknown if ever smoked Have you smoked in the past 12 months: Yes If you are a former smoker, when did you quit?: currently smokes 1 cigar daily Cigars Per Day: 1 Hx Alcohol Use: No Substance Use Type: None Hx Substance Use Treatment: No <Anne Marie Love - Last Filed: 11/13/19 21:35> - Past Medical History Allergies/Adverse Reactions: Allergies Allergy/AdvReac Type Severity Reaction Status Date / Time amoxicillin Allergy Verified 10/21/19 09:29 Home Medications: Ambulatory Orders Apixaban [Eliquis] 5 mg PO BID 11/26/18 Atorvastatin Ca [Lipitor] 10 mg PO HS 11/26/18 Budesonide/Formeterol Fumarate [SYMBICORT 80/4.5mcg -] 1 inh PO BID 11/26/18 Glipizide/Metformin HCl [Glipizide-Metformin 5-500 mg] 1 each PO BID 11/26/18 Labetalol HCl 300 mg PO DAILY 11/26/18 Lisinopril [Zestril] 40 mg PO DAILY 11/26/18 Tamsulosin HCl [Flomax] 0.4 mg PO DAILY 11/26/18 Nitroglycerin Sublingual [Nitrostat -] 0.4 mg SL Q5M PRN tab 11/28/18 Clopidogrel Bisulfate [Clopidogrel] 75 mg PO DAILY 10/21/19 Albuterol 0.083% Nebulizer Kori [Ventolin 0.083% Nebulizer Soln -] 1 amp NEB TID PRN #60 amp 10/23/19 Amlodipine Besylate [Norvasc -] 10 mg PO DAILY #30 tablet 10/23/19 Furosemide [Lasix] 40 mg PO DAILY #30 tablet 10/23/19 Oseltamivir Phosphate [Tamiflu -] 75 mg PO BID #5 capsule 10/28/19 *Physical Exam - Vital Signs Last Vital Signs Temp Pulse Resp BP Pulse Ox 98.6 F 95 H 18 154/106 H 97 10/21/19 09:34 10/21/19 09:57 10/21/19 09:57 10/21/19 09:57 10/21/19 09:57 <Faizan Harvey - Last Filed: 10/21/19 11:59> - Vital Signs Last Vital Signs Temp Pulse Resp BP Pulse Ox 98.6 F 111 H 30 H 187/117 H 93 L 10/21/19 09:34 10/21/19 09:34 10/21/19 09:34 10/21/19 09:34 10/21/19 09:34 <Anne Marie Love - Last Filed: 11/13/19 21:35> ED Treatment Course - LABORATORY CBC & Chemistry Diagram: 10/21/19 10:00 10/21/19 10:00 - ADDITIONAL ORDERS Additional order review: Laboratory Results 10/21/19 10/21/19 10/21/19 10:00 10:00 10:00 PT with INR 14.20 H INR 1.20 H PTT (Actin FS) 40.1 H VBG pH 7.40 POC VBG pCO2 41.5 POC VBG pO2 < 49 H VBG HCO3 25.2 VBG O2 Sat (Nesha) 73.8 VBG Base Excess 0.8 Sodium 140 Potassium 4.2 Chloride 105 Carbon Dioxide 26 Anion Gap 8 BUN 12.1 Creatinine 1.0 Est GFR (CKD-EPI)AfAm 93.73 Est GFR (CKD-EPI)NonAf 80.87 Random Glucose 180 H Calcium 8.2 L Magnesium 2.3 Total Bilirubin 0.6 AST 16 ALT 22 Alkaline Phosphatase 67 Creatine Kinase 151 Creatine Kinase Index 1.3 CK-MB (CK-2) 2.0 Troponin I < 0.02 B-Natriuretic Peptide 2345.7 H Total Protein 7.0 Albumin 3.5 10/21/19 10:00 RBC 4.34 MCV 90.1 MCHC 33.9 RDW 13.8 MPV 9.6 Neutrophils % 67.0 Lymphocytes % 18.6 D Monocytes % 11.4 H Eosinophils % 2.0 Basophils % 1.0 - RADIOLOGY Radiology Studies Ordered: Category Date Time Status CHEST PA & LAT [RAD] Stat Radiology 10/21/19 09:57 Completed - Medications Given in the ED: ED Medications Discontinued Medications Generic Name Dose Route Start Last Admin Trade Name Patience PRN Reason Stop Dose Admin Furosemide 40 mg 10/21/19 11:53 10/21/19 11:57 Lasix Injection - IVPUSH 10/21/19 11:54 40 mg ONCE ONE Administration <Faizan Harvey - Last Filed: 10/21/19 11:59> - LABORATORY CBC & Chemistry Diagram: 10/21/19 10:00 10/22/19 06:35 - ADDITIONAL ORDERS Additional order review: Laboratory Results 10/21/19 10:00 VBG pH 7.40 POC VBG pCO2 41.5 POC VBG pO2 < 49 H VBG HCO3 25.2 VBG O2 Sat (Nesha) 73.8 VBG Base Excess 0.8 <Anne Marie Love - Last Filed: 11/13/19 21:35> Medical Decision Making - Medical Decision Making 10/21/19 10:51 63yo M hx CHF, CAD (s/p 2 stents), Afib (on eliquis and plavix), COPD, smoking ( quitting) HTN, HLD, DM, BPH, and morbid obesity presents c/o progressively worsening SOB, HUDSON, cough, chest pain, and leg swelling x5 days. No imporovement with inhaler 5-6x/day (normally BID). Cogh worsening sometimes productive of clear phlegm. Chest pain at rest constant but varying intensity worsening since 299, susternal, nonradiating, heavy pressure type. Endorses lightheadedness and dyspnea on exertion, no recent changes. Denies sick contacts, travel, fever, chills, diaphoresis, rhinorrhea, myalgias, congestion, rhinorrhea, numbness/tingling, weakness, nausea, vomiting, syncope, hx DVT/PE, hemoptysis. PCP - [facility] - none ROS: Constitutional: Negative for chills, fever, fatigue, diaphoresis. HENT: Negative for sore throat, rhinorrhea, congestion. Eyes: Negative for visual disturbance. Respiratory: Positive for shortness of breath and cough. Negative for wheezing. Cardiovascular: Positive for chest pain, HUDSON, and leg swelling. Negative for palpitations. Gastrointestinal: Negative for abdominal pain, blood in stool, constipation, diarrhea, nausea, and vomiting. Genitourinary: Negative for dysuria, flank pain, and hematuria. Musculoskeletal: Negative for myalgias, back pain, and neck pain. Skin: Negative for rash. Neurological: Negative for light-headedness, dizziness, vertigo, syncope, weakness, numbness and headaches. Psychiatric/Behavioral: Negative for behavioral problems and confusion. PE: Gen: Alert, NAD, anxious-appearing, morbidly obese HEENT: PERRL, EOMI, MMM, NCAT. No conjunctival pallor. Sclera are non-icteric. CV: Tachycardic rate and regular rhythm. No murmurs, rubs, or gallops. PULM: No resp distress. CTAB, decreased BS bilaterally (difficult to assess 2/2 habitus), no wheezes, rales, or rhonchi. ABD: soft, NT/ND, no rebound tenderness or guarding, no CVA tenderness. BACK: No TTP of c/t/l-spine. No step-offs or deformities. MSK: No bony deformities. 2+ pulses in all extremities. NEURO: AAOx3. PERRL. No gross CN deficits. Strength and sensation grossly intact throughout. EXTREMITIES: No cyanosis. No clubbing. BLE edema. No calf tenderness. PSYCH: Normal mood and thought pattern. SKIN: Warm and dry. Normal capillary refill. No rashes. No jaundice. MDM: 63yo M hx CHF, CAD (s/p 2 stents), Afib (on eliquis and plavix), COPD, smoking (quitting) HTN, HLD, DM, BPH, and morbid obesity presents with progressively w orsening SOB, HUDSON, cough, chest pain, and leg swelling x5 days. Hypertensive 187/111, R30, O2 sat 93% on RA, tachycardic 111, afebrile, b/l leg swelling, decreased BS bilaterally (difficult to assess 2/2 habitus). Ddx: CHF exacerbation, COPD exacerbation, ACS/NV, arrhythmia, PNA, URI, UTI, metabolic derangement, anemia -EKG -CXR -CBC,CMP,Coags,Mg,VBG,Cardiac profile,BNP,UA/UC -Pain management -Dispo: pending workup and reassessment, likely admit Labs reviewed. BNP 2345 EKG reviewed: Afib, 91BPM, LAD, no e/o acute ischemia CXR reviewed: No acute pathology. Some minimal posterior blunting -Lasix 40 Admit <Anne Marie Love - Last Filed: 11/13/19 21:35> Discharge - Discharge Information Problems reviewed: Yes - Admission Yes <Faizan Harvey - Last Filed: 10/21/19 11:59> <Anne Marie Love - Last Filed: 11/13/19 21:35> - Discharge Information Clinical Impression/Diagnosis: Acute exacerbation of CHF (congestive heart failure) Qualifiers: Heart failure type: unspecified Qualified Code(s): I50.9 - Heart failure, unspecified Condition: Fair Disposition: HOME
[2019-10-21 10:35] LABS: INR 1.2 (0.83-1.09); PROTHROMBIN TIME (PATIENT) 14.2 SEC (9.7-13.0)
[2019-10-21 10:38] LABS: ACTIVATED PTT 40.1 SECONDS (25.2-36.5)
[2019-10-21 10:47] LABS: ALBUMIN 3.5 g/dl (3.4-5.0); ALK PHOS 67 U/L (45-117); ANION GAP 8 MMOL/L (8-16); BILIRUBIN,TOTAL 0.6 mg/dL (0.2-1); BLOOD UREA NITROGEN 12.1 mg/dL (7-18); CALCIUM 8.2 mg/dL (8.5-10.1); CHLORIDE 105 mmol/L (98-107); CO2 26 mmol/L (21-32); GLUCOSE,RANDOM 180 mg/dL (74-106); MAGNESIUM 2.3 mg/dL (1.8-2.4); POTASSIUM 4.2 mmol/L (3.5-5.1); SGOT/AST 16 U/L (15-37); SGPT/ALT 22 U/L (13-61); SODIUM 140 mmol/L (136-145)
[2019-10-21 11:18] LABS: N-TERMINAL BNP 2345.7 pg/ml (5-125)
[2019-10-21] MEDS ORDERED: FUROSEMIDE 40 MG/4 ML INJECTABLE VIAL IVPUSH ONE (11:53)
[2019-10-21] MEDS ORDERED: FUROSEMIDE 40 MG/4 ML INJECTABLE VIAL ONE (11:58)
--- NOTE | 2019-10-21 12:04 | EKG ---
Test Reason : Blood Pressure : / mmHG Vent. Rate : 093 BPM Atrial Rate : 127 BPM P-R Int : 000 ms QRS Dur : 088 ms QT Int : 372 ms P-R-T Axes : 000 -36 -37 degrees QTc Int : 462 ms ATRIAL FIBRILLATION LEFT AXIS DEVIATION /LAFB NONSPECIFIC ST AND T WAVE ABNORMALITY PROLONGED QT ABNORMAL ECG WHEN COMPARED WITH ECG OF 28-NOV-2018 14:39, ATRIAL FIBRILLATION HAS REPLACED SINUS RHYTHM VENT. RATE HAS INCREASED BY 36 BPM QT HAS LENGTHENED Confirmed by Moshe Brand ([id number]) on 10/21/2019 12:04:22 PM Referred By: Confirmed By:Moshe Brand
[2019-10-21 13:39] LABS: PH,URINE 5.5 (5.0-8.0); URINE APPEARANCE CLEAR; URINE BILIRUBIN NEGATIVE (NEGATIVE); URINE COLOR YELLOW; URINE GLUCOSE (UA) NEGATIVE (NEGATIVE); URINE KETONE NEGATIVE (NEGATIVE); URINE LEUK ESTERASE NEGATIVE (NEGATIVE); URINE NITRITE NEGATIVE (NEGATIVE); URINE PROTEIN NEGATIVE (NEGATIVE); URINE UROBILINOGEN 0.2 mg/dL (0.2-1.0)
--- NOTE | 2019-10-21 16:23 | HP ---
Admitting History and Physical - Primary Care Physician PCP: Breann Hawkins - Admission Chief Complaint: shortness of breath History of Present Illness: progressively worsening shortness of breath for the past 5 days to the point where he can not lay down in the bed flat intermittent wheezing present no recent cough, cold, travel history has chest heaviness and off on palpitations denies medication or dietary noncomplaince feels better in er after iv lasix and o2 History Source: Patient Limitations to Obtaining History: No Limitations - Past Medical History Cardiovascular: Yes: AFIB, CAD, CHF, HTN, Hyperlipdemia Pulmonary: Yes: COPD Renal/: Yes: BPH, Renal Calculi Endocrine: Yes: Diabetes Mellitus (NIDDM) - Past Surgical History Past Surgical History: Yes: None, Stent (cardiac-2? 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 History of Recent Travel: No Home Medications - Allergies Allergies/Adverse Reactions: Allergies Allergy/AdvReac Type Severity Reaction Status Date / Time amoxicillin Allergy Verified 10/21/19 09:29 - Home Medications Home Medications: Ambulatory Orders Apixaban [Eliquis] 5 mg PO BID 11/26/18 Atorvastatin Ca [Lipitor] 10 mg PO HS 11/26/18 Budesonide/Formeterol Fumarate [SYMBICORT 80/4.5mcg -] 1 inh PO BID 11/26/18 Furosemide [Lasix] 20 mg PO DAILY 11/26/18 Glipizide/Metformin HCl [Glipizide-Metformin 5-500 mg] 1 each PO BID 11/26/18 Labetalol HCl 300 mg PO DAILY 11/26/18 Lisinopril [Zestril] 40 mg PO DAILY 11/26/18 Tamsulosin HCl [Flomax] 0.4 mg PO DAILY 11/26/18 Nitroglycerin Sublingual [Nitrostat -] 0.4 mg SL Q5M PRN tab 11/28/18 Clopidogrel Bisulfate [Clopidogrel] 75 mg PO DAILY 10/21/19 Family Medical History Family Hx Cancer: Mother (gallbladder) Family Hx Respiratory Disorders: Father (emphysema) Review of Systems - Review of Systems Constitutional: reports: Weakness. denies: Fever, Lethargy, Loss of Appetite Eyes: reports: No Symptoms HENT: reports: No Symptoms Neck: reports: No Symptoms Cardiovascular: reports: Chest Pain, Shortness of Breath Respiratory: reports: Orthopnea, SOB on Exertion, Wheezing Gastrointestinal: reports: No Symptoms Genitourinary: reports: No Symptoms Musculoskeletal: reports: No Symptoms Integumentary: reports: No Symptoms Neurological: reports: No Symptoms Physical Examination Vital Signs: Vital Signs Temperature 98.6 F 10/21/19 09:34 Pulse Rate 95 H 10/21/19 09:57 Respiratory Rate 18 10/21/19 09:57 Blood Pressure 154/106 H 10/21/19 09:57 O2 Sat by Pulse Oximetry (%) 97 10/21/19 09:57 Constitutional: Yes: Well Nourished, Obese Eyes: Yes: EOM Intact HENT: Yes: Normocephalic Neck: Yes: Trachea Midline Cardiovascular: Yes: Pulse Irregular Respiratory: Yes: Regular (decreased breath sounds at bases) Musculoskeletal: Yes: WNL Extremities: Yes: WNL Edema: Yes Edema: LLE: Trace, RLE: Trace Peripheral Pulses WNL: Yes Neurological: Yes: WNL ...Motor Strength: WNL Psychiatric: Yes: WNL Labs: Laboratory Results - last 24 hr 10/21/19 10/21/19 10/21/19 10:00 10:00 10:00 WBC 7.6 RBC 4.34 Hgb 13.3 Hct 39.1 MCV 90.1 MCH 30.5 MCHC 33.9 RDW 13.8 Plt Count 222 MPV 9.6 Absolute Neuts (auto) 5.1 Neutrophils % 67.0 Lymphocytes % 18.6 D Monocytes % 11.4 H Eosinophils % 2.0 Basophils % 1.0 Nucleated RBC % 0 PT with INR 14.20 H INR 1.20 H PTT (Actin FS) 40.1 H VBG pH POC VBG pCO2 POC VBG pO2 VBG HCO3 VBG O2 Sat (Nesha) VBG Base Excess Sodium 140 Potassium 4.2 Chloride 105 Carbon Dioxide 26 Anion Gap 8 BUN 12.1 Creatinine 1.0 Est GFR (CKD-EPI)AfAm 93.73 Est GFR (CKD-EPI)NonAf 80.87 Random Glucose 180 H Calcium 8.2 L Magnesium 2.3 Total Bilirubin 0.6 AST 16 ALT 22 Alkaline Phosphatase 67 Creatine Kinase 151 Creatine Kinase Index 1.3 CK-MB (CK-2) 2.0 Troponin I < 0.02 B-Natriuretic Peptide 2345.7 H Total Protein 7.0 Albumin 3.5 Urine Color Urine Appearance Urine pH Ur Specific [place] Urine Protein Urine Glucose (UA) Urine Ketones Urine Blood Urine Nitrite Urine Bilirubin Urine Urobilinogen Ur Leukocyte Esterase 10/21/19 10/21/19 10:00 13:15 WBC RBC Hgb Hct MCV MCH MCHC RDW Plt Count MPV Absolute Neuts (auto) Neutrophils % Lymphocytes % Monocytes % Eosinophils % Basophils % Nucleated RBC % PT with INR INR PTT (Actin FS) VBG pH 7.40 POC VBG pCO2 41.5 POC VBG pO2 < 49 H VBG HCO3 25.2 VBG O2 Sat (Nesha) 73.8 VBG Base Excess 0.8 Sodium Potassium Chloride Carbon Dioxide Anion Gap BUN Creatinine Est GFR (CKD-EPI)AfAm Est GFR (CKD-EPI)NonAf Random Glucose Calcium Magnesium Total Bilirubin AST ALT Alkaline Phosphatase Creatine Kinase Creatine Kinase Index CK-MB (CK-2) Troponin I B-Natriuretic Peptide Total Protein Albumin Urine Color Yellow Urine Appearance Clear Urine pH 5.5 Ur Specific [place] 1.015 Urine Protein Negative Urine Glucose (UA) Negative Urine Ketones Negative Urine Blood Negative Urine Nitrite Negative Urine Bilirubin Negative Urine Urobilinogen 0.2 Ur Leukocyte Esterase Negative Imaging - Results Chest X-ray: Report Reviewed EKG: Report Reviewed Problem List - Problems (1) Acute exacerbation of CHF (congestive heart failure) Problems reviewed: Yes Code(s): I50.9 - HEART FAILURE, UNSPECIFIED Qualifiers: Heart failure type: diastolic Qualified Code(s): I50.33 - Acute on chronic diastolic (congestive) heart failure (2) Atrial fibrillation Problems reviewed: Yes Code(s): I48.91 - UNSPECIFIED ATRIAL FIBRILLATION Qualifiers: Atrial fibrillation type: longstanding persistent Qualified Code(s): I48.11 - Longstanding persistent atrial fibrillation (3) Coronary artery disease Code(s): I25.10 - ATHSCL HEART DISEASE OF [place] CORONARY ARTERY W/O ANG PCTRS Qualifiers: Coronary Disease-Associated Artery/Lesion type: [place] artery [place] vs. transplanted heart: [place] heart Associated angina: without angina Qualified Code(s): I25.10 - Atherosclerotic heart disease of [place] coronary artery without angina pectoris (4) Diabetes type 2, controlled Code(s): E11.9 - TYPE 2 DIABETES MELLITUS WITHOUT COMPLICATIONS Qualifiers: Diabetes mellitus terminal supervisor insulin use: without terminal supervisor use (5) Diastolic dysfunction Code(s): I51.89 - OTHER ILL-DEFINED HEART DISEASES (6) HLD (hyperlipidemia) Code(s): E78.5 - HYPERLIPIDEMIA, UNSPECIFIED Qualifiers: Hyperlipidemia type: pure hypercholesterolemia Qualified Code(s): E78.00 - Pure hypercholesterolemia, unspecified; E78.0 - Pure hypercholesterolemia (7) HTN (hypertension) Code(s): I10 - ESSENTIAL (PRIMARY) HYPERTENSION Qualifiers: Hypertension type: essential hypertension Qualified Code(s): I10 - Essential (primary) hypertension Assessment/Plan serial cardiac enzymes iv diuresis daily weights check echo o2 nebulizers continue home medications
[2019-10-21] MEDS ORDERED: ALBUTEROL SO4 0.083% IH SOL 2.5 MG/3 ML VIAL.NEB. NEB PRN (16:30)
[2019-10-21] MEDS: LABETALOL HCL 100 MG TABLET (FP) PO SCH ×2 (18:39→22:49)
[2019-10-21] MEDS ORDERED: LABETALOL HCL 100 MG TABLET (FP) ONE ×2 (18:40→22:29)
[2019-10-21] MEDS ORDERED: ATORVASTATIN CA 10 MG TABLET (FP) PO SCH (22:00)
[2019-10-21] MEDS ORDERED: APIXABAN 5 MG TABLET ONE (22:29)
[2019-10-21] MEDS ORDERED: ATORVASTATIN CA 10 MG TABLET (FP) ONE (22:29)
[2019-10-21] MEDS: APIXABAN 5 MG TABLET PO SCH (22:49)
[2019-10-21] MEDS: BUDESONIDE/FORMETEROL FUMARATE 80/4.5 mcg INHALER IH SCH (23:23)
[2019-10-22] MEDS ORDERED: LISINOPRIL 20 MG TABLET (FP) PO ONE (05:26)
[2019-10-22 07:42] LABS: ALBUMIN 3.3 g/dl (3.4-5.0); BILIRUBIN,TOTAL 0.7 mg/dL (0.2-1); BLOOD UREA NITROGEN 16.6 mg/dL (7-18); CALCIUM 8.1 mg/dL (8.5-10.1); CREATININE 1.1 mg/dL (0.55-1.3); POTASSIUM 3.7 mmol/L (3.5-5.1); TOT PROT 6.7 g/dl (6.4-8.2)
[2019-10-22] MEDS ORDERED: TAMSULOSIN HCL 0.4 MG CAP PO SCH (08:30)
[2019-10-22] MEDS ORDERED: TAMSULOSIN HCL 0.4 MG CAP ONE (08:54)
[2019-10-22] MEDS ORDERED: amLODIPine BESYLATE 5 MG TABLET (FP) ONE (08:56)
[2019-10-22] MEDS ORDERED: LABETALOL HCL 100 MG TABLET (FP) ONE (08:56)
[2019-10-22] MEDS ORDERED: LISINOPRIL 20 MG TABLET (FP) ONE (08:56)
[2019-10-22] MEDS ORDERED: APIXABAN 5 MG TABLET ONE (08:56)
[2019-10-22] MEDS ORDERED: CLOPIDOGREL BISULFATE 75 MG TABLET (FP) ONE (08:57)
[2019-10-22] MEDS ORDERED: FUROSEMIDE 40 MG/4 ML INJECTABLE VIAL ONE (08:57)
[2019-10-22] MEDS ORDERED: CLOPIDOGREL BISULFATE 75 MG TABLET (FP) PO SCH (10:00)
[2019-10-22] MEDS ORDERED: amLODIPine BESYLATE 10 MG TABLET (FP) PO SCH (10:00)
[2019-10-22] MEDS ORDERED: LISINOPRIL 20 MG TABLET (FP) PO SCH (10:00)
[2019-10-22] MEDS ORDERED: FUROSEMIDE 40 MG/4 ML INJECTABLE VIAL IVPUSH SCH (10:00)
--- NOTE | 2019-10-22 10:04 | ECHO ---
Name: MISSY HAIR Exam:Adult Echocardiogram Study Date: 10/22/2019 09:20 AM Age: 63 yrs Reason For Study: CHF, to assess lvsf Height: 66 in Weight: 280 lb BSA: 2.3 m2 MMode/2D Measurements & Calculations IVSd: 1.4 cm Ao root diam: 4.2 cm LVIDd: 5.8 cm LA dimension: 5.2 cm LVIDs: 4.5 cm ACS: 2.2 cm LVPWd: 1.1 cm EDV(Teich): 165.7 ml LVOT diam: 2.0 cm ESV(Teich): 90.2 ml LVLd ap4: 7.6 cm SV(MOD-sp4): 66.0 ml EDV(MOD-sp4): 134.0 ml LVLs ap4: 6.8 cm ESV(MOD-sp4): 68.0 ml LAV (MOD-bp): 105.0 ml TAPSE: 1.6 cm RV S Ryan: 13.9 cm/sec Doppler Measurements & Calculations MV E max ryan: 108.6 cm/sec Ao V2 max: 133.0 cm/sec MV A max ryan: 35.0 cm/sec Ao max P.1 mmHg MV E/A: 3.1 Ao V2 mean: 90.4 cm/sec MV dec time: 0.18 sec Ao mean P.9 mmHg Ao V2 VTI: 23.9 cm RACHNA(I,D): 2.1 cm2 RACHNA(V,D): 1.8 cm2 LV V1 max P.1 mmHg SV(LVOT): 50.1 ml LV V1 mean P.2 mmHg LV V1 max: 72.6 cm/sec LV V1 mean: 50.2 cm/sec LV V1 VTI: 15.4 cm TR max ryan: 293.6 cm/sec PA V2 max: 130.3 cm/sec TR max P.0 mmHg PA max P.8 mmHg PI end-d ryan: 200.9 cm/sec Med Peak E' Ryan: 6.5 cm/sec Med E/e': 16.6 Lat Peak E' Ryan: 12.4 cm/sec Lat E/e': 8.8 Tech Comments TDS. Morbidly obese. Procedure A complete two-dimensional transthoracic echocardiogram was performed (2D, M-mode, Doppler and color flow Doppler). Left Ventricle The left ventricle is mildly dilated. There is borderline asymmetric left ventricular hypertrophy. Ej ection Fraction = 45%. Left ventricular systolic function is mildly reduced. There is mild global hypokinesi s of the left ventricle. Right Ventricle The right ventricle is normal in size and function. Atria The left atrium is moderately dilated. Right atrial size is normal. Mitral Valve The mitral valve is normal in structure and function. There is trace to mild mitral regurgitation. Tricuspid Valve The tricuspid valve is normal in structure and function. There is Trace to mild tricuspid regurgitati on. Right ventricular systolic pressure is elevated at 40 mmhg. Assuming the RA pressure is 5 mmHg. There is mi ld pulmonary hypertension. Aortic Valve There is mild aortic valve thickening. Trace to mild aortic regurgitation. Pulmonic Valve The pulmonic valve is normal in structure and function. Mild pulmonic valvular regurgitation. Great Vessels Mild aortic root dilatation. Pericardium/Pleura There is no pericardial effusion. There is no pleural effusion. Interpretation Summary The left ventricle is mildly dilated. There is borderline asymmetric left ventricular hypertrophy. There is mild global hypokinesis of the left ventricle. Left ventricular systolic function is mildly reduced. Ejection Fraction = 45%. The left atrium is moderately dilated. There is trace to mild mitral regurgitation. There is Trace to mild tricuspid regurgitation. There is mild pulmonary hypertension. Right ventricular systolic pressure is elevated at 40 mmhg. Trace to mild aortic regurgitation. Mild pulmonic valvular regurgitation. Mild aortic root dilatation. MD Christian Mendez 10/22/2019 10:03 AM
[2019-10-22] MEDS: LABETALOL HCL 100 MG TABLET (FP) PO SCH ×2 (11:25→23:02)
[2019-10-22] MEDS: APIXABAN 5 MG TABLET PO SCH ×2 (11:25→23:01)
[2019-10-22] MEDS: BUDESONIDE/FORMETEROL FUMARATE 80/4.5 mcg INHALER IH SCH ×2 (11:25→23:03)
--- NOTE | 2019-10-22 18:35 | PN ---
Progress Note (short form) - Note Progress Note: feels little better, but still can not lay down flat CBC, BMP 10/21/19 10:00 10/22/19 06:35 serial troponin negative Vital Signs Period Temp Pulse Resp BP Sys/Reed Pulse Ox Last 24 Hr 78-89 18-20 150-162/96-106 95-98 s1s2 rrr lungs cta, poor inspiratory effort abd soft obese no edema acute diastolic CHF afbib cad copd cont iv diuresis can transfer to regular floor nabs, symbicort added amlodipine for bp control cont other medications Problem List - Problems (1) Acute exacerbation of CHF (congestive heart failure) Code(s): I50.9 - HEART FAILURE, UNSPECIFIED Qualifiers: Heart failure type: diastolic Qualified Code(s): I50.33 - Acute on chronic diastolic (congestive) heart failure (2) Atrial fibrillation Code(s): I48.91 - UNSPECIFIED ATRIAL FIBRILLATION Qualifiers: Atrial fibrillation type: longstanding persistent Qualified Code(s): I48.11 - Longstanding persistent atrial fibrillation (3) Coronary artery disease Code(s): I25.10 - ATHSCL HEART DISEASE OF [place] CORONARY ARTERY W/O ANG PCTRS Qualifiers: Coronary Disease-Associated Artery/Lesion type: [place] artery [place] vs. transplanted heart: [place] heart Associated angina: without angina Qualified Code(s): I25.10 - Atherosclerotic heart disease of [place] coronary artery without angina pectoris (4) Diabetes type 2, controlled Code(s): E11.9 - TYPE 2 DIABETES MELLITUS WITHOUT COMPLICATIONS Qualifiers: Diabetes mellitus group home insulin use: without group home use (5) Diastolic dysfunction Code(s): I51.89 - OTHER ILL-DEFINED HEART DISEASES (6) HLD (hyperlipidemia) Code(s): E78.5 - HYPERLIPIDEMIA, UNSPECIFIED Qualifiers: Hyperlipidemia type: pure hypercholesterolemia Qualified Code(s): E78.00 - Pure hypercholesterolemia, unspecified; E78.0 - Pure hypercholesterolemia (7) HTN (hypertension) Code(s): I10 - ESSENTIAL (PRIMARY) HYPERTENSION Qualifiers: Hypertension type: essential hypertension Qualified Code(s): I10 - Essential (primary) hypertension
[2019-10-22] MEDS ORDERED: ATORVASTATIN CA 10 MG TABLET (FP) PO SCH (22:00)
[2019-10-22] MEDS: ALBUTEROL SO4 0.083% IH SOL 2.5 MG/3 ML VIAL.NEB. NEB SCH (22:50)
[2019-10-22 23:25] VITALS: BMI 45.7
[2019-10-23] MEDS ORDERED: amLODIPine BESYLATE 10 MG TABLET (FP) PO ONE (06:06)
[2019-10-23] MEDS: ALBUTEROL SO4 0.083% IH SOL 2.5 MG/3 ML VIAL.NEB. NEB SCH ×2 (07:43→13:58)
[2019-10-23] MEDS ORDERED: TAMSULOSIN HCL 0.4 MG CAP PO SCH (08:30)
[2019-10-23] MEDS: LABETALOL HCL 100 MG TABLET (FP) PO SCH (09:48)
[2019-10-23] MEDS: APIXABAN 5 MG TABLET PO SCH (09:49)
[2019-10-23] MEDS: BUDESONIDE/FORMETEROL FUMARATE 80/4.5 mcg INHALER IH SCH (10:00)
[2019-10-23] MEDS ORDERED: LISINOPRIL 20 MG TABLET (FP) PO SCH (10:00)
[2019-10-23] MEDS ORDERED: FUROSEMIDE 40 MG/4 ML INJECTABLE VIAL IVPUSH SCH (10:00)
[2019-10-23] MEDS ORDERED: CLOPIDOGREL BISULFATE 75 MG TABLET (FP) PO SCH (10:00)
--- NOTE | 2019-10-23 11:10 | DS ---
Physical Examination Vital Signs: Vital Signs Temperature 98.1 F 10/23/19 06:35 Pulse Rate 84 10/23/19 06:35 Respiratory Rate 18 10/23/19 06:35 Blood Pressure 153/84 10/23/19 06:35 O2 Sat by Pulse Oximetry (%) 93 L 10/22/19 23:37 Constitutional: Yes: Calm, Obese Eyes: Yes: EOM Intact HENT: Yes: Normocephalic Neck: Yes: Trachea Midline Cardiovascular: Yes: Regular Rate and Rhythm Respiratory: Yes: CTA Bilaterally Gastrointestinal: Yes: Normal Bowel Sounds, Soft, Abdomen, Obese Extremities: Yes: WNL Edema: No Integumentary: Yes: WNL Neurological: Yes: WNL Psychiatric: Yes: WNL Labs: CBC, BMP 10/21/19 10:00 10/22/19 06:35 Discharge Summary Problems reviewed: Yes Reason For Visit: ACUTE ON CHRONIC CHF Current Active Problems Acute exacerbation of CHF (congestive heart failure) (Acute) Hospital Course: admitted for acute diastolic CHF, pmh of afib/ cad/ copd feels better after iv diuresis added amlodipine for bp control hemodinamically stable to dc home today needs outpt f/up cont other medications Condition: Fair - Instructions Disposition: HOME - Home Medications Comprehensive Discharge Medication List: Active Medications Albuterol Sulfate (Ventolin 0.083% Nebulizer Soln -) 1 amp NEB QID prn Amlodipine Besylate (Norvasc -) 10 mg PO DAILY MATILDE Apixaban (Eliquis -) 5 mg PO BID MATILDE Atorvastatin Calcium (Lipitor -) 10 mg PO HS MATILDE Budesonide/Formoterol Fumarate (Symbicort 80/4.5mcg -) 2 puff IH BID MATILDE Clopidogrel Bisulfate (Plavix -) 75 mg PO DAILY MATILDE Furosemide 40 mg po daily Labetalol HCl (Normodyne -) 300 mg PO BID MATILDE Lisinopril (Prinivil) 40 mg PO DAILY MATILDE Tamsulosin HCl (Flomax -) 0.4 mg PO DAILY@0830 [facility] Prescription Drug Monitoring Program (I-STOP) results: I-STOP not reviewed
[2019-10-23 13:37] VITALS: PULSE 90; TEMP 98.8
[2019-10-23 13:48] VITALS: BP 105/72
--- NOTE | 2019-10-23 16:14 | EKG ---
Test Reason : Blood Pressure : / mmHG Vent. Rate : 091 BPM Atrial Rate : 090 BPM P-R Int : 000 ms QRS Dur : 090 ms QT Int : 344 ms P-R-T Axes : 000 -37 -50 degrees QTc Int : 423 ms ATRIAL FIBRILLATION LEFT AXIS DEVIATION NONSPECIFIC ST AND T WAVE ABNORMALITY ABNORMAL ECG Confirmed by MD SIS, IVANNA ([id number]) on 10/23/2019 4:14:32 PM Referred By: Confirmed By:IVANNA ALEGRE MD
[2019-10-24] MEDS ORDERED: amLODIPine BESYLATE 10 MG TABLET (FP) PO SCH (10:00)
== END 2019-10-23 18:00 | disposition home or self-care (01) | DRG 194 ==
LOC: JER 09:22 → JERBED 11:59 → J8W 10-22 20:46
PROVIDERS: ADMIT Internal Medicine; ATTEND Internal Medicine
DX: I11.0 Hypertensive heart disease with heart failure (principal); E11.9 Type 2 diabetes mellitus without complications; I50.31 Acute diastolic (congestive) heart failure; I25.10 Atherosclerotic heart disease of native coronary artery without angina pectoris; J44.9 Chronic obstructive pulmonary disease, unspecified; I48.91 Unspecified atrial fibrillation; E78.5 Hyperlipidemia, unspecified; D29.1 Benign neoplasm of prostate; Z87.442 Personal history of urinary calculi; F17.210 Nicotine dependence, cigarettes, uncomplicated
CPT/HCPCS: 36415; 71046-TC-FY; 80053; 80061; 81003; 82550; 82553; 82803; 83036; 83721; 83735; 83880; 84443; 84484; 85025; 85610; 85730; 87086; 93005; 93010; 93306-TC; 94640; 99285-25

== ENCOUNTER 2019-10-26 20:50 | Inpatient (IN) | payer OTHER ==
--- NOTE | 2019-10-26 21:45 | PDOC ---
Documentation entered by Marilynn Fuchs SCRIBE, acting as scribe for Mike Charles MD. Mike Charles MD: This documentation has been prepared by the Shila arriaga Adrianna, SCRIBE, under my direction and personally reviewed by me in its entirety. I confirm that the documentation accurately reflects all work, treatment, procedures, and medical decision making performed by me. History of Present Illness - General Chief Complaint: Shortness of Breath Stated Complaint: SOB Time Seen by Provider: 10/26/19 20:57 - History of Present Illness Initial Comments: The patient is a 63 year old male, with a significant PMH of CHF, Afib, CAD, COPD, HTN, HLD, DM, BPH, who presents to the ED for evaluation of SOB and chest pain for 2 days. Patient notes he was seen and admitted at [facility] 5 days ago for CHF exacerbation, with the same complaints. He reports feeling significantly better after his discharge, noting he was able to walk over a mile once again without feeling short of breath. After taking his meds and using the nebulizer yesterday, patient notes his SOB and chest pain returned this morning. He endorses dyspnea on exertion and a productive cough of thick phlegm. Patient complains of associated substernal chest pain, that is exacerbated with coughing or taking a deep breath. He reports one episode of nausea and NBNB vomit after trying to eat dinner tonight. Patient additionally tried to use the nebulizer once more, and notes no relief of his symptoms. PAST MEDICAL HISTORY: CHF, Afib, CAD, COPD, HTN, HLD, DM, BPH PAST SURGICAL HISTORY: cardiac stents FAMILY HISTORY: no pertinent history SOCIAL HISTORY: Smokes a cigar daily. Pt lives with family and is employed. MEDICATIONS: reviewed ALLERGIES: As per nursing notes ROS General: No fevers or chills, no weakness, no weight loss HEENT: No change in vision. No sore throat,. No ear pain CardioVascular: +Substernal chest pain. +SOB. Respiratory: +;Productive cough. +Dyspnea on exertion. Gastrointestinal: +One episode of nausea and NBNB vomit. no diarrhea or constipation, No rectal bleeding Genitourinary: No dysuria, hematuria, or frequency Musculoskeletal: No joint or muscle pain or swelling Neurologic: No headache, vertigo, dizziness or loss of consciousness Psychiatric: nor depression Skin: No rashes or easy bruising Endocrine: no increased thirst or abnormal weight change Allergic: no skin or latex allergy All other systems reviewed and normal Physical Exam: General: Well-nourished well-developed individual, no acute distress HEENT: Throat: Normal, tonsils normal, no erythema or exudate Neck: Supple, no meningeal signs, no lymphadenopathy Eyes:Pupils equal reactive and round, extraocular motion intact Chest: Nontender to palpation Cardiac:+Mild tachycardia. S1-S2 normal, regular rhythm, no murmurs rubs or gallops Respiratory: +Decreased breath sounds bilaterally with rales at the bilateral bases ~a quarter of the way up. Abdomen: Soft, nondistended, normal bowel sounds, nontender to palpation diffusely Extremities: Warm, dry, no cyanosis, clubbing, or edema Skin: No rashes Neuro: Alert and oriented x3, nonfocal exam, grossly intact, normal gait Psych: Normal mood and affect. 10/26/19 21:44 Assessment and plan: This is a 63-year-old male with obesity and a history of multiple medical problems including hypertension high cholesterol and diabetes. Patient recently was discharged from [facility] for difficulty breathing. Patient now returns to our hospital for difficulty breathing. Patient is also experiencing some chest pain which is been ongoing x1 day. Work -up initiated and patient will need a inpatient admission. Past History - Past Medical History Allergies/Adverse Reactions: Allergies Allergy/AdvReac Type Severity Reaction Status Date / Time amoxicillin Allergy Verified 10/21/19 09:29 Home Medications: Ambulatory Orders Apixaban [Eliquis] 5 mg PO BID 11/26/18 Atorvastatin Ca [Lipitor] 10 mg PO HS 11/26/18 Budesonide/Formeterol Fumarate [SYMBICORT 80/4.5mcg -] 1 inh PO BID 11/26/18 Glipizide/Metformin HCl [Glipizide-Metformin 5-500 mg] 1 each PO BID 11/26/18 Labetalol HCl 300 mg PO DAILY 11/26/18 Lisinopril [Zestril] 40 mg PO DAILY 11/26/18 Tamsulosin HCl [Flomax] 0.4 mg PO DAILY 11/26/18 Nitroglycerin Sublingual [Nitrostat -] 0.4 mg SL Q5M PRN tab 11/28/18 Clopidogrel Bisulfate [Clopidogrel] 75 mg PO DAILY 10/21/19 Albuterol 0.083% Nebulizer Kori [Ventolin 0.083% Nebulizer Soln -] 1 amp NEB TID PRN #60 amp 10/23/19 Amlodipine Besylate [Norvasc -] 10 mg PO DAILY #30 tablet 10/23/19 Furosemide [Lasix] 40 mg PO DAILY #30 tablet 10/23/19 Cardiac Disorders: Yes (STENTS 2017 and 2006) COPD: Yes CHF: Yes Diabetes: Yes HTN: Yes Hypercholesterolemia: Yes Kidney Stones: Yes - Surgical History Cardiac Surgery: Yes (STENTS 2017 and 2006) - Psycho Social/Smoking Cessation Hx Smoking History: Unknown if ever smoked Have you smoked in the past 12 months: No If you are a former smoker, when did you quit?: currently smokes 1 cigar daily Cigars Per Day: 1 Information on smoking cessation initiated: No 'Breaking Loose' booklet given: 10/22/19 Hx Alcohol Use: No Drug/Substance Use Hx: No Substance Use Type: None Hx Substance Use Treatment: No *Physical Exam - Vital Signs Last Vital Signs Temp Pulse Resp BP Pulse Ox 99.5 F 110 H 20 130/85 94 L 10/26/19 20:53 10/26/19 20:53 10/26/19 20:53 10/26/19 20:53 10/26/19 20:53 ED Treatment Course - LABORATORY CBC & Chemistry Diagram: 10/26/19 21:25 10/26/19 21:25 - RADIOLOGY Radiology Studies Ordered: Category Date Time Status CHEST X-RAY PORTABLE* [RAD] Stat Radiology 10/26/19 21:11 Ordered Discharge - Discharge Information Problems reviewed: Yes Clinical Impression/Diagnosis: Acute exacerbation of CHF (congestive heart failure) Qualifiers: Heart failure type: unspecified Qualified Code(s): I50.9 - Heart failure, unspecified Condition: Stable - Admission Yes - Follow up/Referral - Patient Discharge Instructions - Post Discharge Activity
[2019-10-26 21:59] LABS: BASO % 0.5 % (0-2.0); EOS % 1.1 % (0-4.5); HEMATOCRIT 41.9 % (35.4-49); LYMPH % 7.9 % (8-40); MCH 30.2 pg (25.7-33.7); MCHC 33.3 g/dl (32.0-35.9); MEAN CELL VOLUME 90.6 fl (80-96); MEAN PLT VOLUME 9.8 fl (7.5-11.1); MONO % 9.6 % (3.8-10.2); NEUT % 80.9 % (42.8-82.8); PLATELET COUNT 251 K/MM3 (134-434); RBC 4.62 M/mm3 (4.00-5.60); RDW 12.9 % (11.9-15.9); WHITE BLOOD COUNT 10.9 K/mm3 (4.0-10.8)
[2019-10-26 22:06] LABS: ALBUMIN 3.9 g/dl (3.4-5.0); BILIRUBIN,TOTAL 1.1 mg/dl (0.2-1); CALCIUM 8.4 mg/dl (8.5-10); CREATININE 1.1 mg/dl (0.55-1.3); POTASSIUM 4.1 mmol/L (3.5-5.1); TOT PROT 7.3 g/dl (6.4-8.2)
[2019-10-26] MEDS ORDERED: FUROSEMIDE 40 MG/4 ML INJECTABLE VIAL IVPUSH ONE (22:19)
[2019-10-26] MEDS ORDERED: FUROSEMIDE 100 MG/10 ML INJECTABLE VIAL ONE (22:20)
[2019-10-27] MEDS ORDERED: NITROGLYCERIN SUBLINGUAL 1/150 0.4 MG TAB SL PRN (00:25)
[2019-10-27 01:28] VITALS: BMI 45.8
[2019-10-27] MEDS: ACETAMINOPHEN 325 MG TABLET (FP) PO PRN ×2 (02:59→14:11)
[2019-10-27] MEDS: guaiFENesin/CODEINE 10 ML UNIT-DOSE CUPS PO PRN ×3 (02:59→21:35)
[2019-10-27] MEDS ORDERED: FUROSEMIDE 40 MG/4 ML INJECTABLE VIAL IVPUSH SCH (06:00)
[2019-10-27] MEDS: OSELTAMIVIR PHOSPHATE 75 MG CAPSULE PO SCH ×3 (06:57→21:30)
--- NOTE | 2019-10-27 08:57 | PN ---
Progress Note, Physician Chief Complaint: Patient complaint of cough, shortness of breath is improved. History of Present Illness: 63 years old man morbidly obese history of hypertension, heart failure with a borderline ejection fraction of 45%(10/22/1999 as per cardiology note), type 2 diabetes mellitus, COPD active smoker BPH hypertension dyslipidemia CAD status post stenting 2018, 2 days ago discharged home [facility] after treated for cough and URTI, presented to ED with complaint of shortness of breath cough and fever in the ED influenza A positive, chest x-ray shows pulmonary congestion and EKG shows A. fib with RVR and again, received IV Lasix 80 mg Continue further management - Current Medication List Current Medications: Active Medications Acetaminophen (Tylenol -) 650 mg PO Q6H PRN PRN Reason: FEVER Last Admin: 10/27/19 02:59 Dose: 650 mg Amlodipine Besylate (Norvasc -) 10 mg PO DAILY COUNT INCLUDES [facility] Apixaban (Eliquis -) 5 mg PO BID COUNT INCLUDES THE [facility] Atorvastatin Calcium (Lipitor -) 10 mg PO HS COUNT INCLUDES THE [facility] Budesonide/Formoterol Fumarate (Symbicort 80/4.5mcg -) 1 puff IH BID COUNT INCLUDES THE [facility] Carvedilol (Coreg -) 6.25 mg PO BID COUNT INCLUDES THE [facility] Clopidogrel Bisulfate (Plavix -) 75 mg PO DAILY COUNT INCLUDES THE [facility] Furosemide (Lasix Injection -) 40 mg IVPUSH BID@0600,1400 COUNT INCLUDES THE [facility] Last Admin: 10/27/19 06:57 Dose: 40 mg Guaifenesin/Codeine Phosphate (Robitussin Ac -) 10 ml PO Q8H PRN PRN Reason: COUGH Last Admin: 10/27/19 02:59 Dose: 10 ml Lisinopril (Prinivil) 40 mg PO DAILY COUNT INCLUDES [facility] Nitroglycerin (Nitrostat -) 0.4 mg SL Q5M PRN PRN Reason: FOR CHEST PAIN Oseltamivir Phosphate (Tamiflu -) 75 mg PO BID COUNT INCLUDES [facility] Stop: 11/01/19 06:46 Last Admin: 10/27/19 06:57 Dose: 75 mg Tamsulosin HCl (Flomax -) 0.4 mg PO DAILY@0830 COUNT INCLUDES [facility] - Objective Vital Signs: Vital Signs Temperature 99.5 F 10/27/19 06:00 Pulse Rate 117 H 10/27/19 08:47 Respiratory Rate 20 10/27/19 06:00 Blood Pressure 99/72 10/27/19 06:00 O2 Sat by Pulse Oximetry (%) 96 10/27/19 00:45 General: Middle-aged man, comfortable, not in distress HEENT; mucous membranes moist, no anemia, no jaundice, PERRLA, no nystagmus Neck: No JVD, supple, no bruit, thyroid palpably normal, normal carotid pulsations. Chest: Nontender, minimal bilateral wheezing and rales. CVS: S1-S2 irregular no murmur/gallop/rub Abdomen: Nondistended, soft, bowel sounds present. 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 Lasix 40 mg daily, follow- up cardiology recommendation, EKG on admission shows A. fib with RVR now rate controlled continue anticoagulation. Follow-up cardiology recommendations. Code(s): I50.9 - HEART FAILURE, UNSPECIFIED Qualifiers: Heart failure type: unspecified Qualified Code(s): I50.9 - Heart failure, unspecified (2) Influenza A Assessment/Plan: Continue Tamiflu Problems reviewed: Yes Code(s): J10.1 - FLU DUE TO OTH IDENT INFLUENZA VIRUS W OTH RESP MANIFEST (3) Atrial fibrillation Assessment/Plan: Rate controlled on apixaban continue current management follow cardiology recommendations Problems reviewed: Yes Code(s): I48.91 - UNSPECIFIED ATRIAL FIBRILLATION Qualifiers: (4) Coronary artery disease Assessment/Plan: History of CAD status post stent on aspirin, beta-perez, statin no acute ST-T changes troponin I is negative and denies any chest pain continue home medications. Follow-up cardio recommendations Problems reviewed: Yes Code(s): I25.10 - ATHSCL HEART DISEASE OF [place] CORONARY ARTERY W/O ANG PCTRS Qualifiers: (5) HTN (hypertension) Assessment/Plan: Well-controlled on current medication Problems reviewed: Yes Code(s): I10 - ESSENTIAL (PRIMARY) HYPERTENSION Qualifiers: (6) HLD (hyperlipidemia) Assessment/Plan: Continue statin Problems reviewed: Yes Code(s): E78.5 - HYPERLIPIDEMIA, UNSPECIFIED Qualifiers: (7) GEORGE (acute kidney injury) Assessment/Plan: Creatinine rise from 1.1-1.5 most likely due to IV Lasix will hold IV Lasix resume p.o. Lasix in the morning follow-up BMP. If rising BUN/creatinine consider nephrology consult Problems reviewed: Yes Code(s): N17.9 - ACUTE KIDNEY FAILURE, UNSPECIFIED (8) COPD (chronic obstructive pulmonary disease) Assessment/Plan: Ex smoker continue Symbicort, DuoNeb as needed, consider p.o. prednisone if persistent wheezing or shortness of breath Problems reviewed: Yes Code(s): J44.9 - CHRONIC OBSTRUCTIVE PULMONARY DISEASE, UNSPECIFIED (9) Benign prostatic hyperplasia (BPH) with urinary urge incontinence Assessment/Plan: Continue Flomax follow-up bladder scan. Problems reviewed: Yes Code(s): N40.1 - BENIGN PROSTATIC HYPERPLASIA WITH LOWER URINARY TRACT SYMP; N39.41 - URGE INCONTINENCE (10) History of diabetes mellitus Assessment/Plan: Fingersticks are stable follow-up hemoglobin A1c. Problems reviewed: Yes Code(s): Z86.39 - PERSONAL HISTORY OF ENDO, NUTRITIONAL AND METABOLIC DISEASE
[2019-10-27 09:27] LABS: CALCIUM 8.3 mg/dl (8.5-10); CREATININE 1.4 mg/dl (0.55-1.3); MAGNESIUM 1.9 mg/dL (1.8-2.4); POTASSIUM 4.1 mmol/L (3.5-5.1)
[2019-10-27] MEDS: CLOPIDOGREL BISULFATE 75 MG TABLET (FP) PO SCH (09:34)
[2019-10-27] MEDS: TAMSULOSIN HCL 0.4 MG CAP PO SCH (09:34)
[2019-10-27] MEDS: CARVEDILOL 6.25 MG TABLET (FP) PO SCH ×2 (09:34→21:30)
[2019-10-27] MEDS: amLODIPine BESYLATE 10 MG TABLET (FP) PO SCH (09:34)
[2019-10-27] MEDS: LISINOPRIL 20 MG TABLET (FP) PO SCH (09:34)
[2019-10-27] MEDS: APIXABAN 5 MG TABLET PO SCH ×2 (09:34→21:30)
[2019-10-27 09:52] LABS: BASO % 0.2 % (0-2.0); MCH 30.2 pg (25.7-33.7)
[2019-10-27 09:53] LABS: EOS % 0.1 % (0-4.5); HEMATOCRIT 42.8 % (35.4-49); HEMOGLOBIN 14.1 GM/dl (11.7-16.9); LYMPH % 9.1 % (8-40); MCHC 32.9 g/dl (32.0-35.9); MEAN CELL VOLUME 91.6 fl (80-96); MEAN PLT VOLUME 10.9 fl (7.5-11.1); MONO % 12.6 % (3.8-10.2); PLATELET COUNT 196 K/MM3 (134-434); RBC 4.67 M/mm3 (4.00-5.60); WHITE BLOOD COUNT 11.8 K/mm3 (4.0-10.8)
[2019-10-27] MEDS ORDERED: ALBUTEROL SO4 0.083% IH SOL 2.5 MG/3 ML VIAL.NEB. NEB PRN (11:44)
--- NOTE | 2019-10-27 11:53 | CON.CARD ---
Consult Consult Specialty:: Cardiology Reason for Consultation:: Dyspnea - History of Present Illness History of Present Illness: 63 M with Afib on AC, Diastolic CHF, CAD sp PCI 2008 to RCA and 2018 to LAD admitted with influenza. He feels sob and has chest discomfort when coughing. Echocardiogram 10/22/19 showed mild LV dilation with EF 45% and PASP 40mmHg CXR without pulm vascular congestion. Laboratory Tests 10/26/19 21:25 B-Natriuretic Peptide 1411.5 H - Past Medical History Cardio/Vascular: Yes: AFIB, CAD, CHF, HTN, Hyperlipdemia Pulmonary: Yes: COPD Renal/: Yes: BPH, Renal Calculi Endocrine: Yes: Diabetes Mellitus (NIDDM) - Past Surgical History Past Surgical History: Yes: None, Stent (cardiac-2? 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 History of Recent Travel: No Home Medications - Allergies Allergies/Adverse Reactions: Allergies Allergy/AdvReac Type Severity Reaction Status Date / Time amoxicillin Allergy Verified 10/21/19 09:29 - Home Medications Home Medications: Ambulatory Orders Apixaban [Eliquis] 5 mg PO BID 11/26/18 Atorvastatin Ca [Lipitor] 10 mg PO HS 11/26/18 Budesonide/Formeterol Fumarate [SYMBICORT 80/4.5mcg -] 1 inh PO BID 11/26/18 Glipizide/Metformin HCl [Glipizide-Metformin 5-500 mg] 1 each PO BID 11/26/18 Labetalol HCl 300 mg PO DAILY 11/26/18 Lisinopril [Zestril] 40 mg PO DAILY 11/26/18 Tamsulosin HCl [Flomax] 0.4 mg PO DAILY 11/26/18 Nitroglycerin Sublingual [Nitrostat -] 0.4 mg SL Q5M PRN tab 11/28/18 Clopidogrel Bisulfate [Clopidogrel] 75 mg PO DAILY 10/21/19 Albuterol 0.083% Nebulizer [place] [Ventolin 0.083% Nebulizer Soln -] 1 amp NEB TID PRN #60 amp 10/23/19 Amlodipine Besylate [Norvasc -] 10 mg PO DAILY #30 tablet 10/23/19 Furosemide [Lasix] 40 mg PO DAILY #30 tablet 10/23/19 Review of Systems - Review of Systems Constitutional: reports: Diaphoresis, Fever Eyes: reports: No Symptoms HENT: reports: No Symptoms Neck: reports: No Symptoms Cardiovascular: reports: Chest Pain, Shortness of Breath. denies: Palpitations Respiratory: reports: Cough, SOB on Exertion Vital Signs: Vital Signs Temperature 99.4 F 10/27/19 09:32 Pulse Rate 81 10/27/19 09:32 Respiratory Rate 20 10/27/19 09:32 Blood Pressure 129/78 10/27/19 09:32 O2 Sat by Pulse Oximetry (%) 97 10/27/19 09:33 Constitutional: Yes: Well Nourished, No Distress, Calm Eyes: Yes: Conjunctiva Clear, EOM Intact HENT: Yes: Atraumatic, Normocephalic Neck: Yes: Supple, Trachea Midline Respiratory: Yes: Regular, Rhonchi, SOB Gastrointestinal: Yes: Normal Bowel Sounds, Soft Cardiovascular: Yes: Pulse Irregular JVD: No PMI: Non-Displaced Heart Sounds: Yes: S1, S2 Murmur: No: Systolic Murmur, Diastolic Murmur Edema: No - Other Data Labs, Other Data: CBC, BMP 10/27/19 06:30 10/27/19 06:30 Troponin, BNP 10/26/19 10/26/19 10/27/19 21:25 21:25 06:30 Troponin I < 0.03 Cancelled B-Natriuretic Peptide 1411.5 H 10/27/19 06:30 Troponin I < 0.03 B-Natriuretic Peptide Troponin, BNP 10/26/19 10/26/19 10/27/19 21:25 21:25 06:30 Troponin I < 0.03 Cancelled B-Natriuretic Peptide 1411.5 H 10/27/19 06:30 Troponin I < 0.03 B-Natriuretic Peptide Afib with RVR LAD. No ST T changes. Imaging - Results Chest X-ray: Report Reviewed Problem List - Problems (1) Acute exacerbation of CHF (congestive heart failure) Code(s): I50.9 - HEART FAILURE, UNSPECIFIED Qualifiers: Heart failure type: unspecified Qualified Code(s): I50.9 - Heart failure, unspecified (2) Influenza A Code(s): J10.1 - FLU DUE TO OTH IDENT INFLUENZA VIRUS W OTH RESP MANIFEST Assessment/Plan 63 M with remote ho CAD, chronic Afib, diastolic CHF was recently admitted with diastolic chf exacerbation and is now admitted with Influenza infection. 1. CHF: BNP level has improved since his recent admission and with uptitration of lasix. Continue Lasix 40mg daily PO. CXR shws no pulm edema. SOB likely predominantly due to infection. 2. Afib: Mildly elevated HR in the setting of infection. Would not raise coreg dose. It will improve once the flu resolves. Continue with Eliquis 3. CAD sp RCA and LAD PCI. Last in 2018 Stable chronic CAD without angina. Continue BB/Plavix/statin Will see as needed
[2019-10-27] MEDS: BUDESONIDE/FORMETEROL FUMARATE 80/4.5 mcg INHALER IH SCH ×2 (12:00→21:31)
--- NOTE | 2019-10-27 17:30 | HP ---
Admitting History and Physical - Primary Care Physician PCP: Breann Hawkins - Admission Chief Complaint: Shortness of breath and cough History of Present Illness: 63 years old man morbidly obese history of hypertension, heart failure with a borderline ejection fraction of 45%(10/22/1999 as per cardiology note), type 2 diabetes mellitus, COPD active smoker BPH hypertension dyslipidemia CAD status post stenting 2018, 2 days ago discharged home [facility] after treated for cough and URTI, presented to ED with complaint of shortness of breath cough and fever in the ED influenza A positive, chest x-ray shows pulmonary congestion and EKG shows A. fib with RVR and again, received IV Lasix 80 mg Continue further management - History Source: Patient - Past Medical History Cardiovascular: Yes: AFIB, CAD, CHF, HTN, Hyperlipdemia Pulmonary: Yes: COPD Renal/: Yes: BPH, Renal Calculi Endocrine: Yes: Diabetes Mellitus (NIDDM) - Past Surgical History Past Surgical History: Yes: None, Stent (cardiac-2? 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 History of Recent Travel: No Home Medications - Allergies Allergies/Adverse Reactions: Allergies Allergy/AdvReac Type Severity Reaction Status Date / Time amoxicillin Allergy Verified 10/21/19 09:29 - Home Medications Home Medications: Ambulatory Orders Apixaban [Eliquis] 5 mg PO BID 11/26/18 Atorvastatin Ca [Lipitor] 10 mg PO HS 11/26/18 Budesonide/Formeterol Fumarate [SYMBICORT 80/4.5mcg -] 1 inh PO BID 11/26/18 Glipizide/Metformin HCl [Glipizide-Metformin 5-500 mg] 1 each PO BID 11/26/18 Labetalol HCl 300 mg PO DAILY 11/26/18 Lisinopril [Zestril] 40 mg PO DAILY 11/26/18 Tamsulosin HCl [Flomax] 0.4 mg PO DAILY 11/26/18 Nitroglycerin Sublingual [Nitrostat -] 0.4 mg SL Q5M PRN tab 11/28/18 Clopidogrel Bisulfate [Clopidogrel] 75 mg PO DAILY 10/21/19 Albuterol 0.083% Nebulizer [place] [Ventolin 0.083% Nebulizer Soln -] 1 amp NEB TID PRN #60 amp 10/23/19 Amlodipine Besylate [Norvasc -] 10 mg PO DAILY #30 tablet 10/23/19 Furosemide [Lasix] 40 mg PO DAILY #30 tablet 10/23/19 Family Medical History Family Hx Coronary Artery Disease: Mother Review of Systems - Review of Systems Constitutional: reports: Fever. denies: Chills, Diaphoresis Eyes: denies: Blind Spots, Blurred Vision, Double Vision, Eye Pain HENT: denies: Difficult Swallowing, Ear Discharge, Epistaxis Neck: denies: Decreased ROM, Lumps, Pain on Movement, Stiffness Cardiovascular: reports: Palpitations, Shortness of Breath. denies: Chest Pain , Edema Respiratory: denies: Exercise Intolerance Gastrointestinal: denies: Constipation, Diarrhea Genitourinary: denies: Burning, Discharge, Dysuria, Flank Pain, Frequency Musculoskeletal: denies: Back Pain, Crepitus, Decreased ROM, Extremity Pain Physical Examination Vital Signs: Vital Signs Temperature 98.8 F 10/27/19 17:15 Pulse Rate 90 10/27/19 17:15 Respiratory Rate 20 10/27/19 17:15 Blood Pressure 113/62 10/27/19 14:12 O2 Sat by Pulse Oximetry (%) 98 10/27/19 14:12 General: Middle-aged man, comfortable, not in distress HEENT; mucous membranes moist, no anemia, no jaundice, PERRLA, no nystagmus Neck: No JVD, supple, no bruit, thyroid palpably normal, normal carotid pulsations. Chest: Nontender, minimal bilateral wheezing and rales. CVS: S1-S2 irregular no murmur/gallop/rub Abdomen: Nondistended, soft, bowel sounds present. 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 fib with heart rate [address] changes) Problem List - Problems (1) Acute exacerbation of CHF (congestive heart failure) Assessment/Plan: Patient presented with shortness of breath and elevated BNP history of congestive heart failure, improved after IV Lasix, considering rising BUN/ creatinine we will hold IV Lasix and switch to p.o. Lasix 40 mg daily, follow- up cardiology recommendation, EKG on admission shows A. fib with RVR now rate controlled continue anticoagulation. Follow-up cardiology recommendations. Code(s): I50.9 - HEART FAILURE, UNSPECIFIED Qualifiers: Heart failure type: unspecified Qualified Code(s): I50.9 - Heart failure, unspecified (2) Influenza A Assessment/Plan: Continue Tamiflu Code(s): J10.1 - FLU DUE TO OTH IDENT INFLUENZA VIRUS W OTH RESP MANIFEST (3) Atrial fibrillation Assessment/Plan: Rate controlled on apixaban continue current management follow cardiology recommendations Code(s): I48.91 - UNSPECIFIED ATRIAL FIBRILLATION Qualifiers: (4) Coronary artery disease Assessment/Plan: History of CAD status post stent on aspirin, beta-perez, statin no acute ST-T changes troponin I is negative and denies any chest pain continue home medications. Follow-up cardio recommendations Code(s): I25.10 - ATHSCL HEART DISEASE OF [place] CORONARY ARTERY W/O ANG PCTRS Qualifiers: (5) HTN (hypertension) Assessment/Plan: Well-controlled on current medication Code(s): I10 - ESSENTIAL (PRIMARY) HYPERTENSION Qualifiers: (6) HLD (hyperlipidemia) Assessment/Plan: Continue statin Code(s): E78.5 - HYPERLIPIDEMIA, UNSPECIFIED Qualifiers: (7) GEORGE (acute kidney injury) Assessment/Plan: Creatinine rise from 1.1-1.5 most likely due to IV Lasix will hold IV Lasix resume p.o. Lasix in the morning follow-up BMP. If rising BUN/creatinine consider nephrology consult Code(s): N17.9 - ACUTE KIDNEY FAILURE, UNSPECIFIED (8) COPD (chronic obstructive pulmonary disease) Assessment/Plan: Ex smoker continue Symbicort, DuoNeb as needed, consider p.o. prednisone if persistent wheezing or shortness of breath Code(s): J44.9 - CHRONIC OBSTRUCTIVE PULMONARY DISEASE, UNSPECIFIED (9) Benign prostatic hyperplasia (BPH) with urinary urge incontinence Assessment/Plan: Continue Flomax follow-up bladder scan. Code(s): N40.1 - BENIGN PROSTATIC HYPERPLASIA WITH LOWER URINARY TRACT SYMP; N39.41 - URGE INCONTINENCE (10) History of diabetes mellitus Assessment/Plan: Fingersticks are stable follow-up hemoglobin A1c. Code(s): Z86.39 - PERSONAL HISTORY OF ENDO, NUTRITIONAL AND METABOLIC DISEASE
[2019-10-27] MEDS ORDERED: ATORVASTATIN CA 10 MG TABLET (FP) PO SCH (22:00)
[2019-10-28] MEDS: guaiFENesin/CODEINE 10 ML UNIT-DOSE CUPS PO PRN (06:01)
[2019-10-28] MEDS: ACETAMINOPHEN 325 MG TABLET (FP) PO PRN (06:01)
[2019-10-28 07:51] LABS: HEMATOCRIT 41.5 % (35.4-49); HEMOGLOBIN 13.9 GM/dl (11.7-16.9); MCH 30.5 pg (25.7-33.7); MCHC 33.5 g/dl (32.0-35.9); PLATELET COUNT 199 K/MM3 (134-434); RBC 4.56 M/mm3 (4.00-5.60); RDW 12.9 % (11.9-15.9)
[2019-10-28 07:56] LABS: CALCIUM 8.5 mg/dl (8.5-10); CREATININE 1.2 mg/dl (0.55-1.3); MAGNESIUM 2.2 mg/dL (1.8-2.4); POTASSIUM 3.7 mmol/L (3.5-5.1)
[2019-10-28 08:53] LABS: PLATELET ESTIMATE ADEQUATE
--- NOTE | 2019-10-28 09:27 | PN ---
Physical Exam: SUBJECTIVE: Patient seen and examined OBJECTIVE: Vital Signs Period Temp Pulse Resp BP Sys/Reed Pulse Ox Last 24 Hr 98.8 F-101.3 F 54-103 16-20 113-131/62-97 94-98 GENERAL: The patient is awake, alert, and fully oriented, in no acute distress. HEAD: Normal with no signs of trauma. EYES: PERRL, extraocular movements intact, sclera anicteric, conjunctiva clear. No ptosis. ENT: Ears normal, nares patent, oropharynx clear without exudates, moist mucous membranes. NECK: Trachea midline, full range of motion, supple. LUNGS: Breath sounds equal, clear to auscultation bilaterally, no wheezes, no crackles, no accessory muscle use. HEART: Regular rate and rhythm, S1, S2 without murmur, rub or gallop. ABDOMEN: Soft, nontender, nondistended, normoactive bowel sounds, no guarding, no rebound, no hepatosplenomegaly, no masses. EXTREMITIES: 2+ pulses, warm, well-perfused, no edema. NEUROLOGICAL: Cranial nerves II through XII grossly intact. Normal speech, gait not observed. PSYCH: Normal mood, normal affect. SKIN: Warm, dry, normal turgor, no rashes or lesions noted Laboratory Results - last 24 hr 10/27/19 10/27/19 10/27/19 06:30 06:30 06:30 WBC 11.8 H RBC 4.67 Hgb 14.1 Hct 42.8 MCV 91.6 MCH 30.2 MCHC 32.9 RDW 13.0 Plt Count 196 D MPV 10.9 D Absolute Neuts (auto) 9.1 Neutrophils % 78.0 Neutrophils % (Manual) Lymphocytes % 9.1 Lymphocytes % (Manual) Monocytes % 12.6 H Monocytes % (Manual) Eosinophils % 0.1 D Basophils % 0.2 Platelet Estimate Sodium 134 L Potassium 4.1 Chloride 96 L Carbon Dioxide 25 Anion Gap 13 BUN 21.0 H Creatinine 1.4 H Est GFR (CKD-EPI)AfAm 62.40 Est GFR (CKD-EPI)NonAf 53.84 Random Glucose 77 Calcium 8.3 L Magnesium 1.9 Troponin I Cancelled < 0.03 10/28/19 10/28/19 06:50 06:50 WBC 7.0 RBC 4.56 Hgb 13.9 Hct 41.5 MCV 91.0 MCH 30.5 MCHC 33.5 RDW 12.9 Plt Count 199 MPV 10.0 Absolute Neuts (auto) 3.5 Neutrophils % No Result Required. Neutrophils % (Manual) 56.0 Lymphocytes % No Result Required. Lymphocytes % (Manual) 27.0 Monocytes % Monocytes % (Manual) 17 H* Eosinophils % Basophils % Platelet Estimate Adequate Sodium 137 Potassium 3.7 Chloride 99 Carbon Dioxide 28 Anion Gap 10 BUN 24.0 H Creatinine 1.2 Est GFR (CKD-EPI)AfAm 75.19 Est GFR (CKD-EPI)NonAf 64.87 Random Glucose 121 H Calcium 8.5 Magnesium 2.2 Troponin I Active Medications Generic Name Dose Route Start Last Admin Trade Name Freq PRN Reason Stop Dose Admin Acetaminophen 650 mg 10/27/19 02:11 10/28/19 06:01 Tylenol - PO 650 mg Q6H PRN Administration FEVER Albuterol Sulfate 1 amp 10/27/19 11:44 Ventolin 0.083% Nebulizer Soln - NEB TID PRN WHEEZING Amlodipine Besylate 10 mg 10/27/19 10:00 10/27/19 09:34 Norvasc - PO 10 mg DAILY MATILDE Administration Apixaban 5 mg 10/27/19 10:00 10/27/19 21:30 Eliquis - PO 5 mg BID MATILDE Administration Atorvastatin Calcium 10 mg 10/27/19 22:00 10/27/19 21:30 Lipitor - PO 10 mg HS MATILDE Administration Budesonide/Formoterol Fumarate 1 puff 10/27/19 10:00 10/27/19 21:31 Symbicort 80/4.5mcg - IH 1 puff BID MATILDE Administration Carvedilol 6.25 mg 10/27/19 10:00 10/27/19 21:30 Coreg - PO 6.25 mg BID MATILDE Administration Clopidogrel Bisulfate 75 mg 10/27/19 10:00 10/27/19 09:34 Plavix - PO 75 mg DAILY MATILDE Administration Furosemide 40 mg 10/28/19 10:00 Lasix - PO DAILY MATILDE Guaifenesin/Codeine Phosphate 10 ml 10/27/19 02:11 10/28/19 06:01 Robitussin Ac - PO 10 ml Q8H PRN Administration COUGH Lisinopril 40 mg 10/27/19 10:00 10/27/19 09:34 Prinivil PO 40 mg DAILY MATILDE Administration Nitroglycerin 0.4 mg 10/27/19 00:25 Nitrostat - SL Q5M PRN FOR CHEST PAIN Oseltamivir Phosphate 75 mg 10/27/19 06:47 10/27/19 21:30 Tamiflu - PO 11/01/19 06:46 75 mg BID MATILDE Administration Tamsulosin HCl 0.4 mg 10/27/19 08:30 10/27/19 09:34 Flomax - PO 0.4 mg DAILY@0830 MATILDE Administration ASSESSMENT/PLAN:
[2019-10-28] MEDS: LISINOPRIL 20 MG TABLET (FP) PO SCH (09:50)
[2019-10-28] MEDS: CARVEDILOL 6.25 MG TABLET (FP) PO SCH (09:51)
[2019-10-28] MEDS: OSELTAMIVIR PHOSPHATE 75 MG CAPSULE PO SCH (09:51)
[2019-10-28] MEDS: amLODIPine BESYLATE 10 MG TABLET (FP) PO SCH (09:51)
[2019-10-28] MEDS: CLOPIDOGREL BISULFATE 75 MG TABLET (FP) PO SCH (09:51)
[2019-10-28] MEDS: TAMSULOSIN HCL 0.4 MG CAP PO SCH (09:51)
[2019-10-28] MEDS: APIXABAN 5 MG TABLET PO SCH (09:52)
[2019-10-28] MEDS ORDERED: FUROSEMIDE 40 MG TABLET (FP) PO SCH (10:00)
[2019-10-28] MEDS ORDERED: PATIENT'S OWN MEDICATION (NON-FORMULARY) (Labetalol Hcl [Labetalol Hcl] 300 MG) PO SCH (10:00)
[2019-10-28] MEDS: BUDESONIDE/FORMETEROL FUMARATE 80/4.5 mcg INHALER IH SCH (10:00)
--- NOTE | 2019-10-28 10:07 | EKG ---
Test Reason : Blood Pressure : / mmHG Vent. Rate : 110 BPM Atrial Rate : 120 BPM P-R Int : 000 ms QRS Dur : 096 ms QT Int : 358 ms P-R-T Axes : 000 -46 003 degrees QTc Int : 484 ms ATRIAL FIBRILLATION WITH RAPID VENTRICULAR RESPONSE LEFT AXIS DEVIATION SEPTAL INFARCT , AGE UNDETERMINED ABNORMAL ECG WHEN COMPARED WITH ECG OF 21-OCT-2019 09:46, SEPTAL INFARCT IS NOW PRESENT T WAVE INVERSION NO LONGER EVIDENT IN INFERIOR LEADS Confirmed by Moshe Brand [id number]) on 10/28/2019 10:07:12 AM Referred By: Confirmed By:Moshe Brand
[2019-10-28 10:50] VITALS: BP 120/78; PULSE 82; TEMP 98
--- NOTE | 2019-10-28 12:47 | DS ---
Physical Exam: SUBJECTIVE: Patient seen and examined. OBJECTIVE: Vital Signs Period Temp Pulse Resp BP Sys/Reed Pulse Ox Last 24 Hr 98 F-101.3 F 54-103 16-20 113-131/62-97 94-98 PHYSICAL EXAM GENERAL: The patient is awake, alert, and fully oriented, in no acute distress. LUNGS: Breath sounds equal, clear to auscultation bilaterally, no wheezes, no crackles, no accessory muscle use. HEART: Regular rate and rhythm, S1, S2 without murmur, rub or gallop. ABDOMEN: Soft, nontender, nondistended, normoactive bowel sounds, no guarding, no rebound, no hepatosplenomegaly, no masses. EXTREMITIES: 2+ pulses, warm, well-perfused, no edema. NEUROLOGICAL: Cranial nerves II through XII grossly intact. Normal speech, gait not observed. PSYCH: Normal mood, normal affect. SKIN: Warm, dry, normal turgor, no rashes or lesions noted. LABS Laboratory Results - last 24 hr 10/28/19 10/28/19 10/28/19 06:50 06:50 06:50 WBC 7.0 RBC 4.56 Hgb 13.9 Hct 41.5 MCV 91.0 MCH 30.5 MCHC 33.5 RDW 12.9 Plt Count 199 MPV 10.0 Absolute Neuts (auto) 3.5 Neutrophils % No Result Required. Neutrophils % (Manual) 56.0 Lymphocytes % No Result Required. Lymphocytes % (Manual) 27.0 Monocytes % (Manual) 17 H* Platelet Estimate Adequate Sodium 137 Potassium 3.7 Chloride 99 Carbon Dioxide 28 Anion Gap 10 BUN 24.0 H Creatinine 1.2 Est GFR (CKD-EPI)AfAm 75.19 Est GFR (CKD-EPI)NonAf 64.87 Random Glucose 121 H Hemoglobin A1c % 6.1 Calcium 8.5 Magnesium 2.2 HOSPITAL COURSE: Date of Admission:10/26/19 Date of Discharge: 10/28/19 The patient is a 63 year-old male with a significant PMH of CHF, Afib, CAD, COPD , HTN, HLD, DM, BPH, who presented to the ED for evaluation of SOB, HUDSON, and productive cough. Patient diagnosed with Influenza A. Had started tamiflu prior to admission, discharged with prescription to complete five-day course. Minutes to complete discharge: 35 Discharge Summary Problems reviewed: Yes Reason For Visit: ACUTE ON CHRONIC CHF Current Active Problems GEORGE (acute kidney injury) (Acute) Acute exacerbation of CHF (congestive heart failure) (Acute) COPD (chronic obstructive pulmonary disease) (Acute) History of diabetes mellitus (Acute) Influenza A (Acute) Condition: Improved - Instructions Diet, Activity, Other Instructions: A prescription has been sent to your pharmacy for Tamiflu for an additional 5 doses. Take the first dose before bedtime tonight, then twice daily until finished. You should follow up with your primary care provider, Dr. Gamino, within 1 week of your discharge. Return to the emergency department for any new or worsening symptoms. Referrals: Rosemary Gamino MD [Staff Physician] - 1 Week Disposition: HOME - Home Medications Comprehensive Discharge Medication List: Ambulatory Orders Apixaban [Eliquis] 5 mg PO BID 11/26/18 Atorvastatin Ca [Lipitor] 10 mg PO HS 11/26/18 Budesonide/Formeterol Fumarate [SYMBICORT 80/4.5mcg -] 1 inh PO BID 11/26/18 Glipizide/Metformin HCl [Glipizide-Metformin 5-500 mg] 1 each PO BID 11/26/18 Labetalol HCl 300 mg PO DAILY 11/26/18 Lisinopril [Zestril] 40 mg PO DAILY 11/26/18 Tamsulosin HCl [Flomax] 0.4 mg PO DAILY 11/26/18 Nitroglycerin Sublingual [Nitrostat -] 0.4 mg SL Q5M PRN tab 11/28/18 Clopidogrel Bisulfate [Clopidogrel] 75 mg PO DAILY 10/21/19 Albuterol 0.083% Nebulizer Kori [Ventolin 0.083% Nebulizer Soln -] 1 amp NEB TID PRN #60 amp 10/23/19 Amlodipine Besylate [Norvasc -] 10 mg PO DAILY #30 tablet 10/23/19 Furosemide [Lasix] 40 mg PO DAILY #30 tablet 10/23/19 Oseltamivir Phosphate [Tamiflu -] 75 mg PO BID #5 capsule 10/28/19 This patient is new to me today: Yes Date on this admission: 11/06/19 Emergency Visit: Yes ED Registration Date: 10/26/19 Care time: The patient presented to the Emergency Department on the above date and was hospitalized for further evaluation of their emergent condition. Critical Care patient: No - Discharge Referral Referred to [facility] No
== END 2019-10-28 13:45 | disposition home or self-care (01) | DRG 113 ==
LOC: FER 20:50 → UNDOADMIN 23:13 → FM/S 23:13
PROVIDERS: ADMIT Internal Medicine; ATTEND Nurse Practitioner Acute Care
DX: J10.1 Influenza due to other identified influenza virus with other respiratory manifestations (principal); I11.0 Hypertensive heart disease with heart failure; I50.33 Acute on chronic diastolic (congestive) heart failure; E66.01 Morbid (severe) obesity due to excess calories; Z68.42 Body mass index [BMI] 45.0-49.9, adult; E11.9 Type 2 diabetes mellitus without complications; J44.9 Chronic obstructive pulmonary disease, unspecified; N40.0 Benign prostatic hyperplasia without lower urinary tract symptoms; E78.5 Hyperlipidemia, unspecified; I25.10 Atherosclerotic heart disease of native coronary artery without angina pectoris; N17.9 Acute kidney failure, unspecified; I48.91 Unspecified atrial fibrillation; Z95.5 Presence of coronary angioplasty implant and graft; Z87.442 Personal history of urinary calculi
CPT/HCPCS: 36415; 71045-TC-FY; 80048; 80053; 81003; 82550; 82553; 83036; 83735; 83880; 84484; 85025; 87040; 87070; 87086; 87205; 87804; 93005; 99285-25

== ENCOUNTER 2021-05-25 14:34 | Inpatient (IN) | payer OTHER ==
[2021-05-25 16:00] LABS: BASO % 1.2 % (0-2.0); EOS % 1.4 % (0-4.5); HEMATOCRIT 41.3 % (35.4-49); LYMPH % 25.2 % (8-40); MCH 29.8 pg (25.7-33.7); MCHC 33.8 g/dl (32.0-35.9); MEAN PLT VOLUME 9.5 fl (7.5-11.1); NEUT % 62.2 % (42.8-82.8); PLATELET COUNT 222 10^3/uL (134-434); RBC 4.69 M/mm3 (4.00-5.60); RDW 13.4 % (11.9-15.9); WHITE BLOOD COUNT 7.8 K/mm3 (4.0-10.0)
[2021-05-25 16:21] LABS: CHLORIDE 104 mmol/L (98-107); SODIUM 140 mmol/L (136-145)
[2021-05-25 16:24] LABS: ALBUMIN 3.8 g/dl (3.4-5.0); ANION GAP 5 MMOL/L (8-16); BLOOD UREA NITROGEN 10.6 mg/dL (7-18); CALCIUM 8.9 mg/dL (8.5-10.1); CO2 31 mmol/L (21-32)
[2021-05-25 16:25] LABS: GLUCOSE,RANDOM 81 mg/dL (74-106)
[2021-05-25 16:27] LABS: SGOT/AST 21 U/L (15-37); SGPT/ALT 32 U/L (13-61)
[2021-05-25 16:28] LABS: CREATININE 1.2 mg/dL (0.55-1.3)
[2021-05-25 16:29] LABS: BILIRUBIN,TOTAL 0.7 mg/dL (0.2-1); TOT PROT 7.9 g/dl (6.4-8.2)
[2021-05-25 16:30] LABS: ALK PHOS 63 U/L (45-117)
[2021-05-25 16:32] LABS: N-TERMINAL BNP 2531.7 pg/ml (5-125)
[2021-05-25] MEDS ORDERED: FUROSEMIDE 40 MG/4 ML INJECTABLE VIAL IVPUSH ONE (17:33)
[2021-05-25] MEDS ORDERED: NITROGLYCERIN SUBLINGUAL 1/200 0.3 MG BTL SL ONE (17:34)
[2021-05-25] MEDS ORDERED: FUROSEMIDE 40 MG/4 ML INJECTABLE VIAL ONE (18:19)
[2021-05-25] MEDS ORDERED: NITROGLYCERIN SUBLINGUAL 1/150 0.4 MG TAB SL ONE (19:04)
[2021-05-25] MEDS ORDERED: ALBUTEROL SO4 0.083% IH SOL 2.5 MG/3 ML VIAL.NEB. NEB PRN (22:11)
[2021-05-25] MEDS ORDERED: LISINOPRIL 5 MG TABLET PO ONE (22:58)
[2021-05-25] MEDS ORDERED: LISINOPRIL 5 MG TABLET ONE (23:03)
[2021-05-26 06:18] LABS: HEMATOCRIT 40.9 % (35.4-49); HEMOGLOBIN 13.8 GM/dL (11.7-16.9); MCHC 33.8 g/dl (32.0-35.9); MEAN CELL VOLUME 88.8 fl (80-96); MEAN PLT VOLUME 9.7 fl (7.5-11.1); PLATELET COUNT 216 10^3/uL (134-434); RBC 4.61 M/mm3 (4.00-5.60); RDW 13.1 % (11.9-15.9); WHITE BLOOD COUNT 6.7 K/mm3 (4.0-10.0)
[2021-05-26 06:35] LABS: ALBUMIN 3.6 g/dl (3.4-5.0); MAGNESIUM 2.3 mg/dL (1.8-2.4)
[2021-05-26 06:36] LABS: BLOOD UREA NITROGEN 14.6 mg/dL (7-18); CALCIUM 8.5 mg/dL (8.5-10.1)
[2021-05-26 06:38] LABS: CREATININE 1.2 mg/dL (0.55-1.3)
[2021-05-26 06:40] LABS: PHOSPHOROUS 3.9 mg/dL (2.5-4.9); TOT PROT 7.8 g/dl (6.4-8.2)
[2021-05-26 06:41] LABS: BILIRUBIN,TOTAL 0.6 mg/dL (0.2-1)
[2021-05-26] MEDS ORDERED: LABETALOL HCL 100 MG TABLET (FP) ONE (09:45)
[2021-05-26] MEDS ORDERED: APIXABAN 5 MG TABLET ONE (09:45)
[2021-05-26] MEDS ORDERED: TAMSULOSIN HCL 0.4 MG CAP ONE (09:46)
[2021-05-26] MEDS ORDERED: CLOPIDOGREL BISULFATE 75 MG TABLET (FP) ONE (09:46)
[2021-05-26] MEDS ORDERED: LISINOPRIL 20 MG TABLET ONE (09:46)
[2021-05-26] MEDS ORDERED: FUROSEMIDE 40 MG/4 ML INJECTABLE VIAL ONE (09:46)
[2021-05-26] MEDS: LISINOPRIL 20 MG TABLET PO SCH (09:50)
[2021-05-26] MEDS: TAMSULOSIN HCL 0.4 MG CAP PO SCH (09:50)
[2021-05-26] MEDS: LABETALOL HCL 100 MG TABLET (FP) PO SCH ×2 (09:50→21:17)
[2021-05-26] MEDS: amLODIPine BESYLATE 10 MG TABLET (FP) PO SCH (09:50)
[2021-05-26] MEDS: APIXABAN 5 MG TABLET PO SCH ×2 (09:50→21:17)
[2021-05-26] MEDS: CLOPIDOGREL BISULFATE 75 MG TABLET (FP) PO SCH (09:50)
[2021-05-26] MEDS ORDERED: FUROSEMIDE 40 MG/4 ML INJECTABLE VIAL IVPUSH SCH (10:00)
[2021-05-26] MEDS ORDERED: ENOXAPARIN NA (PORCINE) 40 MG/0.4 ML DISP.SYRIN SQ SCH (10:00)
[2021-05-26] MEDS: INSULIN SLIDING SCALE (NOVOLOG) 1 VIAL SQ SCH ×4 (10:00→21:17)
[2021-05-26] MEDS: hydrALAZINE HCL 10 MG TABLET PO SCH ×2 (13:22→21:17)
[2021-05-26] MEDS: BUDESONIDE/FORMETEROL FUMARATE 80/4.5 mcg INHALER IH SCH ×2 (14:46→21:22)
[2021-05-26 19:03] LABS: PH,URINE 6.5 (5.0-8.0); URINE APPEARANCE CLEAR; URINE BILIRUBIN NEGATIVE (NEGATIVE); URINE COLOR YELLOW; URINE GLUCOSE (UA) NEGATIVE (NEGATIVE); URINE KETONE NEGATIVE (NEGATIVE); URINE LEUK ESTERASE NEGATIVE (NEGATIVE); URINE NITRITE NEGATIVE (NEGATIVE); URINE PROTEIN NEGATIVE (NEGATIVE)
[2021-05-26] MEDS: ATORVASTATIN CA 10 MG TABLET (FP) PO SCH (21:17)
[2021-05-26] MEDS: MONTELUKAST NA 10 MG TABLET PO SCH (21:17)
[2021-05-27] MEDS: FUROSEMIDE 40 MG/4 ML INJECTABLE VIAL IVPUSH SCH ×2 (05:44→13:23)
[2021-05-27] MEDS: hydrALAZINE HCL 10 MG TABLET PO SCH ×3 (05:44→22:42)
[2021-05-27] MEDS: INSULIN SLIDING SCALE (NOVOLOG) 1 VIAL SQ SCH ×4 (06:43→22:43)
[2021-05-27 07:42] LABS: ALBUMIN 3.6 g/dl (3.4-5.0); BLOOD UREA NITROGEN 18.5 mg/dL (7-18); CALCIUM 8.7 mg/dL (8.5-10.1)
[2021-05-27 07:46] LABS: CREATININE 1.1 mg/dL (0.55-1.3)
[2021-05-27 07:47] LABS: BILIRUBIN,TOTAL 0.7 mg/dL (0.2-1); TOT PROT 7.7 g/dl (6.4-8.2)
[2021-05-27] MEDS: amLODIPine BESYLATE 10 MG TABLET (FP) PO SCH (09:57)
[2021-05-27] MEDS: LISINOPRIL 20 MG TABLET PO SCH (09:57)
[2021-05-27] MEDS: TAMSULOSIN HCL 0.4 MG CAP PO SCH (09:57)
[2021-05-27] MEDS: LABETALOL HCL 100 MG TABLET (FP) PO SCH ×2 (09:58→22:41)
[2021-05-27] MEDS: CLOPIDOGREL BISULFATE 75 MG TABLET (FP) PO SCH (09:58)
[2021-05-27] MEDS: APIXABAN 5 MG TABLET PO SCH ×2 (09:58→22:41)
[2021-05-27] MEDS: BUDESONIDE/FORMETEROL FUMARATE 80/4.5 mcg INHALER IH SCH ×2 (10:04→22:47)
[2021-05-27] MEDS: MONTELUKAST NA 10 MG TABLET PO SCH (22:42)
[2021-05-27] MEDS: ATORVASTATIN CA 10 MG TABLET (FP) PO SCH (22:42)
[2021-05-28 00:01] VITALS: BMI 47.7
[2021-05-28] MEDS: hydrALAZINE HCL 10 MG TABLET PO SCH ×3 (05:47→21:29)
[2021-05-28] MEDS: FUROSEMIDE 40 MG/4 ML INJECTABLE VIAL IVPUSH SCH ×2 (05:47→14:59)
[2021-05-28] MEDS: INSULIN SLIDING SCALE (NOVOLOG) 1 VIAL SQ SCH ×4 (06:16→21:30)
[2021-05-28] MEDS: TAMSULOSIN HCL 0.4 MG CAP PO SCH (08:08)
[2021-05-28] MEDS: LISINOPRIL 20 MG TABLET PO SCH (10:05)
[2021-05-28] MEDS: LABETALOL HCL 100 MG TABLET (FP) PO SCH ×2 (10:05→21:30)
[2021-05-28] MEDS: BUDESONIDE/FORMETEROL FUMARATE 80/4.5 mcg INHALER IH SCH ×2 (10:05→21:30)
[2021-05-28] MEDS: APIXABAN 5 MG TABLET PO SCH ×2 (10:05→21:30)
[2021-05-28] MEDS: CLOPIDOGREL BISULFATE 75 MG TABLET (FP) PO SCH (10:05)
[2021-05-28] MEDS: amLODIPine BESYLATE 10 MG TABLET (FP) PO SCH (10:06)
[2021-05-28] MEDS: MONTELUKAST NA 10 MG TABLET PO SCH (21:29)
[2021-05-28] MEDS: ATORVASTATIN CA 10 MG TABLET (FP) PO SCH (21:30)
[2021-05-29] MEDS: hydrALAZINE HCL 10 MG TABLET PO SCH (06:27)
[2021-05-29] MEDS: INSULIN SLIDING SCALE (NOVOLOG) 1 VIAL SQ SCH ×2 (06:27→12:29)
[2021-05-29 07:39] LABS: HEMATOCRIT 41.4 % (35.4-49); HEMOGLOBIN 13.9 GM/dL (11.7-16.9); MCH 29.5 pg (25.7-33.7); MCHC 33.5 g/dl (32.0-35.9); MEAN PLT VOLUME 9.6 fl (7.5-11.1); PLATELET COUNT 207 10^3/uL (134-434); RDW 13.4 % (11.9-15.9); WHITE BLOOD COUNT 7.3 K/mm3 (4.0-10.0)
[2021-05-29 08:01] LABS: ALBUMIN 3.6 g/dl (3.4-5.0); CALCIUM 8.5 mg/dL (8.5-10.1)
[2021-05-29 08:04] LABS: CREATININE 1.1 mg/dL (0.55-1.3)
[2021-05-29 08:06] LABS: BILIRUBIN,TOTAL 0.9 mg/dL (0.2-1); TOT PROT 7.6 g/dl (6.4-8.2)
[2021-05-29] MEDS: TAMSULOSIN HCL 0.4 MG CAP PO SCH (09:15)
[2021-05-29 09:57] VITALS: BP 130/78; PULSE 77; TEMP 98.5
[2021-05-29] MEDS ORDERED: TORSEMIDE 20 MG TABLET (FP) PO SCH (10:00)
[2021-05-29] MEDS: APIXABAN 5 MG TABLET PO SCH (10:39)
[2021-05-29] MEDS: LABETALOL HCL 100 MG TABLET (FP) PO SCH (10:40)
[2021-05-29] MEDS: amLODIPine BESYLATE 10 MG TABLET (FP) PO SCH (10:40)
[2021-05-29] MEDS: BUDESONIDE/FORMETEROL FUMARATE 80/4.5 mcg INHALER IH SCH (10:40)
[2021-05-29] MEDS: CLOPIDOGREL BISULFATE 75 MG TABLET (FP) PO SCH (10:40)
[2021-05-29] MEDS: LISINOPRIL 20 MG TABLET PO SCH (10:40)
== END 2021-05-29 12:50 | disposition home or self-care (01) | DRG 194 ==
LOC: JER 14:34 → JERBED 15:30 → J4W 05-26 15:51
PROVIDERS: ADMIT Internal Medicine; ATTEND Internal Medicine
DX: I11.0 Hypertensive heart disease with heart failure (principal); I50.23 Acute on chronic systolic (congestive) heart failure; I25.10 Atherosclerotic heart disease of native coronary artery without angina pectoris; I48.91 Unspecified atrial fibrillation; E78.5 Hyperlipidemia, unspecified; E11.9 Type 2 diabetes mellitus without complications; J44.9 Chronic obstructive pulmonary disease, unspecified; N40.0 Benign prostatic hyperplasia without lower urinary tract symptoms; E88.81 Metabolic syndrome and other insulin resistance; R94.31 Abnormal electrocardiogram [ECG] [EKG]; F17.210 Nicotine dependence, cigarettes, uncomplicated; E66.9 Obesity, unspecified; Z68.42 Body mass index [BMI] 45.0-49.9, adult; Z87.442 Personal history of urinary calculi; Z95.5 Presence of coronary angioplasty implant and graft
CPT/HCPCS: 36415; 71046-TC-FY; 80053; 80061; 81003; 82550; 82553; 82962; 83036; 83735; 83880; 84100; 84484; 85025; 85027; 87804; 93005; 93010; 93306-TC; 94761; 99285-25; C9803; U0003; U0005

== ENCOUNTER 2023-02-12 18:41 | Inpatient (IN) | payer MEDICARE, OTHER ==
[2023-02-12] MEDS ORDERED: SODIUM CHLORIDE 0.9% 500 ML INFUS.BAG IV ONE ×2 (18:56→20:24)
[2023-02-12 19:02] VITALS: BMI 44.4
[2023-02-12 19:14] LABS: VENOUS BASE EXCESS -8.2 mmol/L (-2-2); VENOUS O2 SATURATION 35.1 % (70-80); VENOUS PCO2 43.5 mmHg (38-52); VENOUS PH 7.253 (7.310-7.410)
[2023-02-12] MEDS ORDERED: NOREPINEPHRINE BITARTRATE 16,000 MCG in SODIUM CHLORIDE 484 ML IV SCH (19:15)
[2023-02-12 19:18] LABS: BASO % 0.6 % (0-2.0); EOS % 0.3 % (0-4.5); HEMATOCRIT 55.1 % (35.4-49); HEMOGLOBIN 18.1 GM/dL (11.7-16.9); LYMPH % 20.6 % (8-40); MCHC 32.9 g/dl (32.0-35.9); MEAN CELL VOLUME 91.3 fl (80-96); MEAN PLT VOLUME 10.6 fl (7.5-11.1); MONO % 15.8 % (3.8-10.2); NEUT % 62.7 % (42.8-82.8); PLATELET COUNT 311 10^3/uL (134-434); RBC 6.03 M/mm3 (4.00-5.60); RDW 13.8 % (11.9-15.9); WHITE BLOOD COUNT 10.5 K/mm3 (4.0-10.0)
[2023-02-12 19:22] LABS: INR 1.24 (0.83-1.09); PROTHROMBIN TIME (PATIENT) 14.4 SEC (9.7-13.0)
[2023-02-12 19:25] LABS: ACTIVATED PTT 42.7 SECONDS (25.2-36.5)
[2023-02-12] MEDS ORDERED: NOREPINEPHRINE 0.9 % NACL 8 MG/250 ML BAG IVPB SCH (19:30)
[2023-02-12] MEDS ORDERED: ACETAMINOPHEN 1000 MG/100 ML BAG IVPB ONE (19:32)
[2023-02-12] MEDS ORDERED: ACETAMINOPHEN INJECTION 100 ML IVPB ONE (19:40)
[2023-02-12 19:42] LABS: CHLORIDE 91 mmol/L (98-107); SODIUM 130 mmol/L (136-145)
[2023-02-12 19:44] LABS: ALBUMIN 4.1 g/dl (3.4-5.0)
[2023-02-12 19:45] LABS: BLOOD UREA NITROGEN 60.7 mg/dL (7-18); CO2 20 mmol/L (21-32); GLUCOSE,RANDOM 235 mg/dL (74-106); MAGNESIUM 2.8 mg/dL (1.8-2.4)
[2023-02-12 19:48] LABS: SGOT/AST 85 U/L (15-37); SGPT/ALT 70 U/L (13-61)
[2023-02-12 19:50] LABS: ALK PHOS 66 U/L (45-117); BILIRUBIN,TOTAL 0.5 mg/dL (0.2-1); TOT PROT 9.1 g/dl (6.4-8.2)
[2023-02-12 19:52] LABS: ANION GAP 19 MMOL/L (8-16); CREATININE 9.1 mg/dL (0.55-1.3); POTASSIUM 6.4 mmol/L (3.5-5.1)
[2023-02-12] MEDS ORDERED: INSULIN REGULAR HUMAN 100 UNITS/ML *VIAL IVPUSH ONE ×2 (19:55→20:39)
[2023-02-12] MEDS ORDERED: DEXTROSE 50%-WATER - 25 GM/50 ML VIAL IVPUSH ONE ×2 (19:55→20:39)
[2023-02-12 20:02] LABS: LACTIC ACID 2.9 mmol/L (0.4-2.0)
[2023-02-12 20:03] LABS: N-TERMINAL BNP 1869.4 pg/ml (5-125)
[2023-02-12] MEDS ORDERED: DEXTROSE 50%-WATER 25 GM/50 ML DISP.SYRIN ONE (20:29)
[2023-02-12 20:36] LABS: CHLORIDE 93 mmol/L (98-107); SODIUM 131 mmol/L (136-145)
[2023-02-12 20:38] LABS: CALCIUM 8.3 mg/dL (8.5-10.1)
[2023-02-12 20:39] LABS: ALBUMIN 3.6 g/dl (3.4-5.0); ANION GAP 18 MMOL/L (8-16); BLOOD UREA NITROGEN 63.6 mg/dL (7-18); CO2 20 mmol/L (21-32); GLUCOSE,RANDOM 227 mg/dL (74-106)
[2023-02-12 20:42] LABS: SGOT/AST 53 U/L (15-37); SGPT/ALT 59 U/L (13-61)
[2023-02-12 20:43] LABS: CREATININE 9.1 mg/dL (0.55-1.3)
[2023-02-12 20:44] LABS: BILIRUBIN,TOTAL 0.4 mg/dL (0.2-1); TOT PROT 7.6 g/dl (6.4-8.2)
[2023-02-12 20:45] LABS: ALK PHOS 57 U/L (45-117)
[2023-02-12] MEDS ORDERED: SODIUM ZIRCONIUM CYCLOSILICATE (LOKELMA) 5 GM PACKET PO ONE (20:57)
[2023-02-12] MEDS ORDERED: SODIUM ZIRCONIUM CYCLOSILICATE (LOKELMA) 5 GM PACKET ONE (21:36)
[2023-02-12 23:33] LABS: CHLORIDE 98 mmol/L (98-107); POTASSIUM 4.7 mmol/L (3.5-5.1); SODIUM 134 mmol/L (136-145)
[2023-02-12 23:35] LABS: CALCIUM 7.8 mg/dL (8.5-10.1)
[2023-02-12 23:36] LABS: ANION GAP 15 MMOL/L (8-16); BLOOD UREA NITROGEN 61.1 mg/dL (7-18); CO2 21 mmol/L (21-32); GLUCOSE,RANDOM 146 mg/dL (74-106)
[2023-02-12 23:39] LABS: CREATININE 9.2 mg/dL (0.55-1.3)
[2023-02-12 23:47] LABS: LACTIC ACID 2.4 mmol/L (0.4-2.0)
[2023-02-13] MEDS: SODIUM CHLORIDE 1,000 ML IV SCH ×5 (00:14→22:58)
[2023-02-13] MEDS ORDERED: ACETAMINOPHEN 1000 MG/100 ML BAG IVPB ONE (01:03)
[2023-02-13] MEDS ORDERED: SODIUM CHLORIDE 250 ML IV STA (03:02)
[2023-02-13 07:30] LABS: BASO % 0.3 % (0-2.0); EOS % 0.5 % (0-4.5); HEMATOCRIT 46.3 % (35.4-49); HEMOGLOBIN 14.9 GM/dL (11.7-16.9); LYMPH % 27.6 % (8-40); MCH 29.4 pg (25.7-33.7); MCHC 32.2 g/dl (32.0-35.9); MEAN CELL VOLUME 91.3 fl (80-96); MEAN PLT VOLUME 10.4 fl (7.5-11.1); MONO % 18.6 % (3.8-10.2); PLATELET COUNT 229 10^3/uL (134-434); RBC 5.07 M/mm3 (4.00-5.60); RDW 13.5 % (11.9-15.9); WHITE BLOOD COUNT 10.2 K/mm3 (4.0-10.0)
[2023-02-13 07:45] LABS: CHLORIDE 100 mmol/L (98-107); POTASSIUM 4.6 mmol/L (3.5-5.1); SODIUM 134 mmol/L (136-145)
[2023-02-13 07:54] LABS: ANION GAP 16 MMOL/L (8-16); BLOOD UREA NITROGEN 64.4 mg/dL (7-18); CALCIUM 7.2 mg/dL (8.5-10.1); CO2 18 mmol/L (21-32); GLUCOSE,RANDOM 83 mg/dL (74-106); MAGNESIUM 2.3 mg/dL (1.8-2.4); PHOSPHOROUS 6.5 mg/dL (2.5-4.9)
[2023-02-13 08:08] LABS: CREATININE 8.9 mg/dL (0.55-1.3)
[2023-02-13] MEDS ORDERED: INSULIN (NOVOLOG) ASPART 100 UNITS/ML 10ML VIAL SQ PRN (09:05)
[2023-02-13] MEDS: APIXABAN 5 MG TABLET PO SCH ×2 (11:05→21:40)
[2023-02-13] MEDS ORDERED: SODIUM CHLORIDE 1,000 ML IV STA (11:58)
[2023-02-13 15:55] LABS: EPI CELLS 9 /uL (0-25.1); HYALINE CASTS 7 /uL (0-3.1); URINE APPEARANCE CLEAR; URINE BACTERIA 11 /uL (0-1359); URINE BILIRUBIN NEGATIVE (NEGATIVE); URINE COLOR YELLOW; URINE GLUCOSE (UA) 2+ (NEGATIVE); URINE KETONE NEGATIVE (NEGATIVE); URINE LEUK ESTERASE NEGATIVE (NEGATIVE); URINE NITRITE NEGATIVE (NEGATIVE); URINE PROTEIN 1+ (NEGATIVE); URINE UROBILINOGEN 0.2 mg/dL (0.2-1.0); URINE WBC 14 /uL (0-25.8)
[2023-02-13 21:08] LABS: URINE RBC 26.3 /uL (0-23.9); YEAST NONE SEEN (NEGATIVE)
[2023-02-14 07:37] LABS: HEMATOCRIT 42.8 % (35.4-49); HEMOGLOBIN 14.2 GM/dL (11.7-16.9); MCH 29.5 pg (25.7-33.7); MCHC 33.2 g/dl (32.0-35.9); MEAN CELL VOLUME 88.9 fl (80-96); PLATELET COUNT 183 10^3/uL (134-434); RBC 4.82 M/mm3 (4.00-5.60); RDW 13.6 % (11.9-15.9); WHITE BLOOD COUNT 6.2 K/mm3 (4.0-10.0)
[2023-02-14 08:21] LABS: POTASSIUM 4.4 mmol/L (3.5-5.1)
[2023-02-14 08:30] LABS: BLOOD UREA NITROGEN 46.7 mg/dL (7-18)
[2023-02-14 08:34] LABS: CREATININE 4.3 mg/dL (0.55-1.3)
[2023-02-14 08:35] LABS: BILIRUBIN,TOTAL 0.9 mg/dL (0.2-1); TOT PROT 6.1 g/dl (6.4-8.2)
[2023-02-14] MEDS ORDERED: metoPROLOL SUCCINATE 25 MG TAB.SR.24H (FP) PO SCH (10:00)
[2023-02-14] MEDS: SODIUM CHLORIDE 1,000 ML IV SCH (10:58)
[2023-02-14] MEDS: APIXABAN 5 MG TABLET PO SCH ×2 (10:58→21:48)
[2023-02-14] MEDS: PANTOPRAZOLE 20 MG TABLET PO SCH (10:58)
[2023-02-14] MEDS: SODIUM CHLORIDE 0.45% 1,000 ML IV SCH ×2 (17:06→21:52)
[2023-02-15 06:39] LABS: HEMATOCRIT 41.5 % (35.4-49); HEMOGLOBIN 13.6 GM/dL (11.7-16.9); MCH 29.9 pg (25.7-33.7); MCHC 32.8 g/dl (32.0-35.9); MEAN PLT VOLUME 9.7 fl (7.5-11.1); PLATELET COUNT 160 10^3/uL (134-434); RBC 4.56 M/mm3 (4.00-5.60); RDW 13.4 % (11.9-15.9); WHITE BLOOD COUNT 5.8 K/mm3 (4.0-10.0)
[2023-02-15 06:56] LABS: POTASSIUM 4.2 mmol/L (3.5-5.1)
[2023-02-15 06:59] LABS: ALBUMIN 2.9 g/dl (3.4-5.0); BLOOD UREA NITROGEN 28.6 mg/dL (7-18); CALCIUM 7.2 mg/dL (8.5-10.1)
[2023-02-15 07:02] LABS: CREATININE 2.3 mg/dL (0.55-1.3)
[2023-02-15 07:04] LABS: BILIRUBIN,TOTAL 0.5 mg/dL (0.2-1); TOT PROT 6.2 g/dl (6.4-8.2)
[2023-02-15] MEDS: PANTOPRAZOLE 20 MG TABLET PO SCH (09:23)
[2023-02-15] MEDS: APIXABAN 5 MG TABLET PO SCH ×2 (09:23→21:25)
[2023-02-15] MEDS: SODIUM CHLORIDE 0.45% 1,000 ML IV SCH (10:43)
[2023-02-15 20:08] LABS: ANTIGLOMERULAR BASEMENT MEN.AB <0.2 units (0.0-0.9)
[2023-02-15 22:32] LABS: PH,URINE 5.5 (5.0-8.0); URINE APPEARANCE CLEAR; URINE BILIRUBIN NEGATIVE (NEGATIVE); URINE COLOR YELLOW; URINE GLUCOSE (UA) 3+ (NEGATIVE); URINE KETONE NEGATIVE (NEGATIVE); URINE LEUK ESTERASE NEGATIVE (NEGATIVE); URINE NITRITE NEGATIVE (NEGATIVE); URINE PROTEIN TRACE (NEGATIVE); URINE UROBILINOGEN 0.2 mg/dL (0.2-1.0)
[2023-02-16] MEDS: SODIUM CHLORIDE 0.45% 1,000 ML IV SCH ×2 (06:26→10:45)
[2023-02-16 08:11] LABS: HEMATOCRIT 42.6 % (35.4-49); HEMOGLOBIN 14.3 GM/dL (11.7-16.9); MCH 30.1 pg (25.7-33.7); MCHC 33.5 g/dl (32.0-35.9); MEAN CELL VOLUME 89.8 fl (80-96); MEAN PLT VOLUME 10.2 fl (7.5-11.1); PLATELET COUNT 163 10^3/uL (134-434); RBC 4.74 M/mm3 (4.00-5.60)
[2023-02-16] MEDS: TAMSULOSIN HCL 0.4 MG CAP PO SCH (08:15)
[2023-02-16 08:19] LABS: POTASSIUM 4.4 mmol/L (3.5-5.1)
[2023-02-16 08:26] LABS: ALBUMIN 3.1 g/dl (3.4-5.0); BLOOD UREA NITROGEN 22.2 mg/dL (7-18)
[2023-02-16 08:28] LABS: CALCIUM 7.9 mg/dL (8.5-10.1)
[2023-02-16 08:29] LABS: CREATININE 1.8 mg/dL (0.55-1.3)
[2023-02-16 08:30] LABS: BILIRUBIN,TOTAL 0.9 mg/dL (0.2-1); TOT PROT 6.6 g/dl (6.4-8.2)
[2023-02-16] MEDS: PANTOPRAZOLE 20 MG TABLET PO SCH (09:16)
[2023-02-16] MEDS: APIXABAN 5 MG TABLET PO SCH ×2 (09:16→21:51)
[2023-02-16] MEDS ORDERED: ROSUVASTATIN CA 5 MG TABLET PO SCH (22:00)
[2023-02-17 00:18] VITALS: RESP 18
[2023-02-17] MEDS ORDERED: ACETAMINOPHEN 1000 MG/100 ML BAG IVPB ONE (03:08)
[2023-02-17] MEDS ORDERED: MELATONIN 5 MG TABLETS PO ONE (03:10)
[2023-02-17] MEDS: SODIUM CHLORIDE 0.45% 1,000 ML IV SCH (03:27)
[2023-02-17 07:39] LABS: POTASSIUM 4.4 mmol/L (3.5-5.1)
[2023-02-17 07:48] LABS: ALBUMIN 2.9 g/dl (3.4-5.0); BLOOD UREA NITROGEN 20.2 mg/dL (7-18)
[2023-02-17 07:51] LABS: CREATININE 1.7 mg/dL (0.55-1.3)
[2023-02-17 07:53] LABS: BILIRUBIN,TOTAL 0.7 mg/dL (0.2-1); TOT PROT 6.3 g/dl (6.4-8.2)
[2023-02-17] MEDS: TAMSULOSIN HCL 0.4 MG CAP PO SCH (09:57)
[2023-02-17] MEDS: PANTOPRAZOLE 20 MG TABLET PO SCH (09:57)
[2023-02-17] MEDS: APIXABAN 5 MG TABLET PO SCH (09:57)
[2023-02-17 14:29] VITALS: BP 130/73; PULSE 77; TEMP 98.7
== END 2023-02-17 14:50 | disposition home or self-care (01) | DRG 683 ==
LOC: JER 18:41 → JERBED 21:42 → J4S 02-13 00:52
PROVIDERS: ADMIT Internal Medicine; ATTEND Internal Medicine
DX: N17.9 Acute kidney failure, unspecified (principal); E87.1 Hypo-osmolality and hyponatremia; E87.20 Acidosis, unspecified; K92.1 Melena; Z68.41 Body mass index [BMI] 40.0-44.9, adult; I48.91 Unspecified atrial fibrillation; Z79.01 Long term (current) use of anticoagulants; I25.10 Atherosclerotic heart disease of native coronary artery without angina pectoris; E11.9 Type 2 diabetes mellitus without complications; J44.9 Chronic obstructive pulmonary disease, unspecified; E78.5 Hyperlipidemia, unspecified; Z79.84 Long term (current) use of oral hypoglycemic drugs; E87.5 Hyperkalemia; E66.01 Morbid (severe) obesity due to excess calories; E86.0 Dehydration; A08.4 Viral intestinal infection, unspecified; I11.0 Hypertensive heart disease with heart failure; I50.9 Heart failure, unspecified
CPT/HCPCS: 0241U-QW; 36415; 71045-TC-FY; 74176-TC; 76775-TC; 76856-TC; 80048; 80053; 81003; 82272; 82436; 82550; 82553; 82570; 82803; 82962; 83516; 83520; 83605; 83735; 83880; 84100; 84133; 84155; 84165; 84300; 84439; 84443; 84484; 85025; 85027; 85610; 85730; 86038; 86225; 86256; 87040; 87045; 87046; 87086; 87186; 93005; 93010; 97116-GP; 97162-GP; 99285-25

== ENCOUNTER 2025-01-18 20:39 | Observation (INO) | payer MEDICARE ==
[2025-01-18 20:45] VITALS: BMI 43.5
[2025-01-18] MEDS ORDERED: ASPIRIN 81 MG CHEWABLE TABLETS ONE (21:05)
[2025-01-18] MEDS: ASPIRIN 81 MG CHEWABLE TABLETS PO ONE (21:15)
[2025-01-18 21:28] LABS: ABSOLUTE IMMATURE GRANULOCYTES 0.02 x10^3/uL (0.0-0.031); EOSINOPHIL % 2.8 % (0.8-7.0); HEMATOCRIT 42.1 % (40.1-51.0); HEMOGLOBIN 13.9 g/dL (13.7-17.5); MEAN CELL VOLUME 90.9 fl (79.0-92.2); MEAN PLT VOLUME 11.7 fl (9.4-12.4); MONOCYTE # 0.81 x10^3/uL (0.30-0.82); MONOCYTE % 11.2 % (5.3-12.2); PLATELET COUNT 169 x10^3/uL (163-337); RDW 12.9 % (12.2-16.4)
[2025-01-18 21:36] LABS: INR 1.65 (0.83-1.09)
[2025-01-18] MEDS ORDERED: ACETAMINOPHEN INJECTION 100 ML ONE (21:37)
[2025-01-18 21:38] LABS: ACTIVATED PTT 43.5 SECONDS (25.2-36.5)
[2025-01-18] MEDS: ACETAMINOPHEN 1000 MG/100 ML BAG IVPB ONE (21:41)
[2025-01-18 21:56] LABS: POTASSIUM 4.5 mmol/L (3.5-5.1)
[2025-01-18 21:58] LABS: ALBUMIN 3.3 g/dl (3.4-5.0); CALCIUM 8.8 mg/dL (8.5-10.1)
[2025-01-18 21:59] LABS: BLOOD UREA NITROGEN 14.9 mg/dL (7-18); MAGNESIUM 2.1 mg/dL (1.8-2.4)
[2025-01-18 22:02] LABS: CREATININE 1.4 mg/dL (0.55-1.3)
[2025-01-18 22:03] LABS: BILIRUBIN,TOTAL 0.4 mg/dL (0.2-1); TOT PROT 6.8 g/dl (6.4-8.2)
[2025-01-18] MEDS: SODIUM CHLORIDE 0.9% 500 ML INFUS.BAG IV ONE (22:50)
[2025-01-19] MEDS ORDERED: ACETAMINOPHEN 325 MG TABLET (FP) PO PRN (03:38)
[2025-01-19] MEDS: INSULIN ASPART SLIDING SCALE (NOVOLOG) 1 VIAL SQ SCH (06:00)
[2025-01-19] MEDS: EMPAGLIFLOZIN (JARDIANCE) 25 MG TABLET PO SCH (07:01)
[2025-01-19 07:41] LABS: INR 1.54 (0.83-1.09); PROTHROMBIN TIME (PATIENT) 16.8 SEC (9.7-13.0)
[2025-01-19 07:49] LABS: BASOPHILS # 0.09 x10^3/uL (0.01-0.08); EOSINOPHIL % 4.3 % (0.8-7.0); HEMATOCRIT 41.6 % (40.1-51.0); HEMOGLOBIN 13.6 g/dL (13.7-17.5); MCHC 32.7 g/dl (32.3-36.5); RDW 12.7 % (12.2-16.4)
[2025-01-19 07:51] LABS: ABSOLUTE IMMATURE GRANULOCYTES 0.01 x10^3/uL (0.0-0.031); EOSINOPHILS # 0.26 x10^3/uL (0.04-0.54); MEAN CELL VOLUME 91.4 fl (79.0-92.2); MEAN PLT VOLUME 11.5 fl (9.4-12.4); MONOCYTE # 0.74 x10^3/uL (0.30-0.82); MONOCYTE % 12.4 % (5.3-12.2); PLATELET COUNT 159 x10^3/uL (163-337)
[2025-01-19 07:56] LABS: POTASSIUM 4.3 mmol/L (3.5-5.1)
[2025-01-19 08:07] LABS: CALCIUM 8.3 mg/dL (8.5-10.1)
[2025-01-19 08:08] LABS: ALBUMIN 3.2 g/dl (3.4-5.0); BLOOD UREA NITROGEN 13.2 mg/dL (7-18); CHOLESTEROL 81 mg/dL (50-200); MAGNESIUM 2.1 mg/dL (1.8-2.4)
[2025-01-19 08:10] LABS: LDL CHOLESTEROL (ONLY SJRH) 46 mg/dL (5-100)
[2025-01-19 08:11] LABS: CREATININE 1.1 mg/dL (0.55-1.3); PHOSPHOROUS 3.9 mg/dL (2.5-4.9)
[2025-01-19 08:12] LABS: BILIRUBIN,TOTAL 0.7 mg/dL (0.2-1); HDL CHOLESTEROL 26 mg/dL (40-60)
[2025-01-19 08:13] LABS: TOT PROT 6.5 g/dl (6.4-8.2)
[2025-01-19] MEDS ORDERED: PATIENT'S OWN MEDICATION (NON-FORMULARY) (Mirabegron [Myrbetriq] 50 MG Tab.Er.24h) PO SCH (10:00)
[2025-01-19] MEDS ORDERED: LIDOCAINE 5% TOPICAL PATCH TP SCH (10:00)
[2025-01-19] MEDS: LIDOCAINE 4% PATCH TP SCH (11:18)
[2025-01-19] MEDS: VALSARTAN 40 MG TABLET PO SCH (11:19)
[2025-01-19] MEDS: SPIRONOLACTONE 25 MG TABLET PO SCH (11:19)
[2025-01-19] MEDS: COLCHICINE 0.6 MG CAPSULE PO SCH (11:19)
[2025-01-19] MEDS: ASPIRIN 81 MG CHEWABLE TABLETS PO SCH (11:19)
[2025-01-19] MEDS: metoPROLOL SUCCINATE 25 MG TAB.SR.24H (FP) PO SCH (11:20)
[2025-01-19] MEDS: CycloBENZAprine HCL 5 MG TABLET PO ONE (11:20)
[2025-01-19] MEDS: ENOXAPARIN NA (PORCINE) 80 MG/0.8 ML DISP.SYRIN SQ ONE (11:21)
[2025-01-19] MEDS: ENOXAPARIN NA (PORCINE) 40 MG/0.4 ML DISP.SYRIN SQ SCH (12:06)
[2025-01-19] MEDS: WARFARIN NA 7.5 MG TABLET PO SCH (17:40)
[2025-01-19] MEDS ORDERED: WARFARIN NA 5 MG TABLET PO SCH (18:00)
[2025-01-19] MEDS ORDERED: LIDOCAINE PATCH REMOVAL MC SCH (22:00)
[2025-01-19] MEDS ORDERED: ATORVASTATIN CA 80 MG TABLET (FP) PO SCH (22:00)
[2025-01-19] MEDS: LIDOCAINE PATCH REMOVAL MC SCH (23:10)
[2025-01-19] MEDS: ENOXAPARIN NA (PORCINE) 120 MG/0.8 ML DISP.SYRIN SQ SCH (23:10)
[2025-01-19] MEDS: MONTELUKAST NA 10 MG TABLET PO SCH (23:10)
[2025-01-19] MEDS: IBUPROFEN 600 MG TABLET (FP) PO ONE (23:31)
[2025-01-20 00:38] VITALS: RESP 20
[2025-01-20 08:00] LABS: INR 1.44 (0.83-1.09); PROTHROMBIN TIME (PATIENT) 15.8 SEC (9.7-13.0)
[2025-01-20 08:09] LABS: POTASSIUM 4.2 mmol/L (3.5-5.1)
[2025-01-20 08:13] LABS: ALBUMIN 3.4 g/dl (3.4-5.0); CALCIUM 8.7 mg/dL (8.5-10.1)
[2025-01-20 08:14] LABS: BLOOD UREA NITROGEN 15.8 mg/dL (7-18)
[2025-01-20 08:17] LABS: CREATININE 1.2 mg/dL (0.55-1.3)
[2025-01-20 08:23] LABS: BILIRUBIN,TOTAL 0.7 mg/dL (0.2-1)
[2025-01-20 08:25] LABS: HEMATOCRIT 43.7 % (40.1-51.0); HEMOGLOBIN 14.5 g/dL (13.7-17.5); MCHC 33.2 g/dl (32.3-36.5); MEAN CELL VOLUME 90.7 fl (79.0-92.2); MEAN PLT VOLUME 12.2 fl (9.4-12.4); PLATELET COUNT 185 x10^3/uL (163-337); RDW 12.6 % (12.2-16.4)
[2025-01-20] MEDS: VALSARTAN 40 MG TABLET PO SCH (09:16)
[2025-01-20] MEDS ORDERED: REGADENOSON 0.4 MG/5 ML PRE-FILLED SYRINGE IVPUSH ONE (09:25)
[2025-01-20] MEDS: REGADENOSON 0.4 MG/5 ML PRE-FILLED SYRINGE IVPUSH ONE (10:45)
[2025-01-20 15:17] VITALS: BP 152/111; PULSE 85; TEMP 98.1
== END 2025-01-20 15:12 | disposition home or self-care (01) ==
LOC: JER 20:39 → JERBED 21:40 → UNDOADMOB 21:40 → INTOOBSV 01-19 00:39 → OBSVTOIN 01-19 00:39 → J4W 01-19 02:45 → JERBED 01-19 02:45 → J4W 01-20 09:29
PROVIDERS: ADMIT Student in an Organized Health Care Education/Training Program; ATTEND Internal Medicine
PROC: 3E033NZ Introduction of Analgesics, Hypnotics, Sedatives into Peripheral Vein, Percutaneous Approach (ICD-10-PCS; principal; 2025-01-20)
PROC: 3E023GC Introduction of Other Therapeutic Substance into Muscle, Percutaneous Approach (ICD-10-PCS; 2025-01-20)
PROC: 3E013VG Introduction of Insulin into Subcutaneous Tissue, Percutaneous Approach (ICD-10-PCS; 2025-01-20)
PROC: 3E033GC Introduction of Other Therapeutic Substance into Peripheral Vein, Percutaneous Approach (ICD-10-PCS; 2025-01-20)
DX: I50.30 Unspecified diastolic (congestive) heart failure (principal); I50.1 Left ventricular failure, unspecified; R79.89 Other specified abnormal findings of blood chemistry; E78.5 Hyperlipidemia, unspecified; I48.91 Unspecified atrial fibrillation; J44.9 Chronic obstructive pulmonary disease, unspecified; E11.9 Type 2 diabetes mellitus without complications; I11.0 Hypertensive heart disease with heart failure; Z79.01 Long term (current) use of anticoagulants; Z87.442 Personal history of urinary calculi
CPT/HCPCS: 0241U-QW; 36415; 71045-TC-FY; 76705-TC; 78452-TC; 80053; 80061; 82962; 83036; 83735; 83880; 84100; 84484; 85025; 85027; 85610; 85730; 86850; 86900; 86901; 93005; 93010; 93017; 93306-TC; 96372; 96374; 96375; 99285-25; A9502; G0378; J0131; J2785